=== PATIENT | male | born 1945 | race Caucasian/White ===

== ENCOUNTER 2020-08-31 11:20 | Inpatient (IN) ==
[2020-08-31] MEDS ORDERED: FAMOTIDINE 20MG IV PUSH 20 MG/5 ML SYR IV STA (12:17)
[2020-08-31] MEDS ORDERED: PANTOprazole 80 MG in DEXTROSE 5% 100 ML IV ONE (12:17)
--- NOTE | 2020-08-31 12:23 | Emergency Department Note ---
Impression & Plan Upper gastrointestinal hemorrhage, Anemia, Heme positive stool, Black stool, Acute hyponatremia ED Provider Note NAME: SONIA EDDY AGE: 75 SEX: M : 1945 ARRIVES VIA: Walk-In INFORMANT: [Patient] ED PROVIDER(S): [Christopher Perez MD] CHIEF COMPLAINT: Rectal bleeding HISTORY OF PRESENT ILLNESS: The patient is a 75-year-old male who presents to the ER with potential rectal bleeding. The patient states that last weekend, about 5 to 6 days ago, he had some fever and some chills. He was sweating. Patient states that he was placed on antibiotics for his right foot. He did see a school psychologist yesterday, the antibiotics were stopped--infection was not a concern. Patient states that yesterday is when the dark stool started. He had some loose black stool that he thought may have been from the antibiotics. This morning, he had formed stool that was black and he felt a little bit lightheaded. He was somewhat weak. He does not really have any abdominal pain. There has been no nausea or vomiting. Patient denies any previous history of GI bleeding. He is on aspirin daily as a preventative measure. The patient is not on Coumadin or any new oral anticoagulants. No history of gastric ulcer. REVIEW OF SYSTEMS: See HPI for pertinent positives and negatives. A total of ten systems were reviewed and were otherwise negative. PMHx/PSHx: See Below SOCIAL HISTORY: See Below. PHYSICAL EXAM: GENERAL: Patient is in no acute distress. HEENT: No acute trauma, normocephalic atraumatic, mucous membranes moist, no nasal congestion, no scleral icterus. NECK: No stridor, no adenopathy, no meningismus, trachea is midline. LUNGS: Clear to auscultation bilaterally, no wheeze, no rhonchi, breath sounds equal. HEART: Without murmurs gallops or rubs, regular rate and rhythm. ABDOMEN: Soft, nontender, bowel sounds positive, no hernias, no peritonitis. EXTREMITIES: No cyanosis or edema, full range of motion of all the joints without pain or difficulty, no signs for acute trauma. NEUROLOGIC: Oriented x 3, no acute motor or sensory deficits, no focal weakness. SKIN: No rash, no jaundice, no diaphoresis. Rectal: Black stool, heme positive. DIFFERENTIAL DIAGNOSIS: Diverticulosis, AVM, coagulopathy, colitis, inflammatory bowel disease, malignancy, Amber-Ayers tear, esophagitis, peptic ulcer disease, variceal bleed, gastritis, epistaxis, fissure, hemorrhoids, as well as other pathologies. EMERGENCY DEPARTMENT COURSE/PROCEDURES: ECG: Indication was GI bleed. The ECG shows a normal sinus rhythm with a rate of 62. There is no ST elevation, no PVCs. The QTc is 422. Continuous Cardiac Monitoring: An order was placed for continuous cardiac monitoring. The monitor shows a rate of 65 with normal sinus rhythm. MEDICAL DECISION MAKING: There is no leukocytosis. The patient is mildly anemic with a hemoglobin of 13.9. There is a normal platelet count. No coagulopathy. Sodium was somewhat low at 129, no kidney failure. No concerning liver enzyme elevation. No evidence for pancreatitis. ECG shows a normal sinus rhythm, no acute ischemia. Cardiac enzyme testing x1 is not consistent with acute cardiac injury. On exam, the patient's stool was black in color and heme positive. Patient likely has an upper GI bleed. He was given IV Protonix and then placed on a Protonix drip. He was given IV saline and IV Pepcid. The patient is not in need of an emergent blood transfusion. He does need hospitalization and further work-up. He may require an endoscopy. The patient was told the results of his testing. He is currently resting comfortably. I did speak with case management, the on-call hospitalist was consulted. Past Med/Surg History Medical History Neuropathy Family History Other Family history non-contributory Social History Smoking Status: Never smoker Preferred Language: Albanian Feels Safe at Home: Yes Allergies Allergies Allergy/AdvReac Type Severity Reaction Status Date / Time amoxicillin [From Augmentin] AdvReac Nausea Unverified 08/31/20 14:21 clavulanic acid AdvReac Nausea Unverified 08/31/20 14:21 [From Augmentin] Home Meds Home Medications Medication Instructions Recorded Confirmed alendronate 70 mg PO WK 08/31/20 08/31/20 allopurinol 300 mg PO DAILY 08/31/20 08/31/20 alprazolam 0.5 mg PO BID PRN 08/31/20 08/31/20 aspirin 81 mg PO DAILY 08/31/20 08/31/20 atorvastatin 10 mg PO DAILY 08/31/20 08/31/20 bisoprolol fumarate 10 mg PO DAILY 08/31/20 08/31/20 cholecalciferol (vitamin D3) 25 mcg PO DAILY 08/31/20 08/31/20 fish,bora,flax oils-om3,6,9no1 1 cap PO DAILY 08/31/20 08/31/20 [[place] 3-6-9] lisinopril 40 mg PO DAILY 08/31/20 08/31/20 sulfamethoxazole-trimethoprim 1 tab PO UD 08/31/20 08/31/20 [Bactrim DS] Results & Data (ED) Vital Signs Vital Signs - 24 hr 08/31/20 11:36 08/31/20 12:37 08/31/20 12:58 Temperature 36.7 C Temperature Source Oral Pulse Rate 70 63 64 Pulse Rate from SpO2 Sensor 64 62 Respiratory Rate 20 22 23 Blood Pressure 139/90 126/78 Blood Pressure Mean 106 94 Pulse Oximetry 98 96 96 Oxygen Delivery Method Room Air Sepsis Recent Fever Within 48 Hours No Sepsis New/Unexplained Change in Mental Status N/A Sepsis Action Taken by Nursing No Action Required 08/31/20 13:00 08/31/20 13:30 08/31/20 14:00 Temperature Temperature Source Pulse Rate 63 67 63 Pulse Rate from SpO2 Sensor 63 68 64 Respiratory Rate 21 20 20 Blood Pressure 142/86 H 158/84 H 143/85 H Blood Pressure Mean 98 118 96 Pulse Oximetry 97 97 95 Oxygen Delivery Method Room Air Room Air Sepsis Recent Fever Within 48 Hours Sepsis New/Unexplained Change in Mental Status Sepsis Action Taken by Nursing 08/31/20 14:30 08/31/20 14:31 Temperature Temperature Source Pulse Rate 64 66 Pulse Rate from SpO2 Sensor 64 66 Respiratory Rate 23 21 Blood Pressure 139/84 Blood Pressure Mean 97 Pulse Oximetry 96 96 Oxygen Delivery Method Room Air Sepsis Recent Fever Within 48 Hours Sepsis New/Unexplained Change in Mental Status Sepsis Action Taken by Alf Medications Current Medication List: was personally reviewed by me Laboratory Data Attestation: I reviewed the patient's lab results. Result diagrams: 08/31/20 12:30 08/31/20 12:30 Lab Results 08/31/20 08/31/20 08/31/20 Range/Units 12:30 12:30 12:30 WBC 6.77 (4.8-10.8) K/uL RBC 4.13 L (4.7-6.1) M/uL Hgb 13.9 L (14.0-18.0) g/dL Hct 40.2 L (42-52) % MCV 97.3 (80-100) fL MCH 33.7 (25-34) pg MCHC 34.6 (32-36) g/dL RDW Std Deviation 45.5 (36.4-46.3) fL RDW Coeff of Francisco Javier 12.6 (11.5-14.5) % Plt Count 155 (130-400) K/uL MPV 9.8 (7.4-10.4) fL Immature Gran % (Auto) 0.6 % Neut % (Auto) 68.5 % Lymph % (Auto) 13.3 % Hughes % (Auto) 16.2 % Eos % (Auto) 1.3 % Baso % (Auto) 0.1 % Neut # (Auto) 4.63 (1.4-6.5) K/uL Lymph # (Auto) 0.90 L (1.2-3.4) K/uL Hughes # (Auto) 1.10 H (0.11-0.59) K/uL Eos # (Auto) 0.09 (0-0.5) K/uL Baso # (Auto) 0.01 (0-0.2) K/uL Immature Gran # (Auto) 0.04 H (0.00-0.02) K/uL PT 11.0 (9.0-12.0) Seconds INR 1.0 (0.9-1.1) APTT 23.1 (21.0-31.0) Seconds PTT Ratio 0.8 Sodium (136-145) mmol/L Potassium (3.5-5.1) mmol/L Chloride (98-107) mmol/L Carbon Dioxide (21-32) mmol/L Anion Gap (3-11) BUN (7-18) mg/dl Creatinine (0.6-1.4) mg/dl Est Cr Clr Drug Dosing ml/min Est GFR ( Amer) Est GFR (Non-Af Amer) BUN/Creatinine Ratio (-20) Glucose (70-99) mg/dl Osmolality (280-300) mOsm/kg Calcium (8.5-10.1) mg/dl Magnesium (1.8-2.4) mg/dl Total Bilirubin (0.2-1) mg/dl AST (15-37) U/L ALT (12-78) U/L Alkaline Phosphatase (45-117) U/L Troponin I (0-0.045) ng/ml Total Protein (6.4-8.2) gm/dl Albumin (3.4-5.0) gm/dl Globulin (2.5-4.0) gm/dl Albumin/Globulin Ratio (0.9-2) Lipase (73-393) U/L Specimen Hemolysis Blood Type O Positive Antibody Screen NEGATIVE 08/31/20 08/31/20 Range/Units 12:30 12:36 WBC (4.8-10.8) K/uL RBC (4.7-6.1) M/uL Hgb (14.0-18.0) g/dL Hct (42-52) % MCV (80-100) fL MCH (25-34) pg MCHC (32-36) g/dL RDW Std Deviation (36.4-46.3) fL RDW Coeff of Francisco Javier (11.5-14.5) % Plt Count (130-400) K/uL MPV (7.4-10.4) fL Immature Gran % (Auto) % Neut % (Auto) % Lymph % (Auto) % Hughes % (Auto) % Eos % (Auto) % Baso % (Auto) % Neut # (Auto) (1.4-6.5) K/uL Lymph # (Auto) (1.2-3.4) K/uL Hughes # (Auto) (0.11-0.59) K/uL Eos # (Auto) (0-0.5) K/uL Baso # (Auto) (0-0.2) K/uL Immature Gran # (Auto) (0.00-0.02) K/uL PT (9.0-12.0) Seconds INR (0.9-1.1) APTT (21.0-31.0) Seconds PTT Ratio Sodium 129 L (136-145) mmol/L Potassium 3.8 (3.5-5.1) mmol/L Chloride 96 L (98-107) mmol/L Carbon Dioxide 26 (21-32) mmol/L Anion Gap 7.0 (3-11) BUN 15 (7-18) mg/dl Creatinine 1.12 (0.6-1.4) mg/dl Est Cr Clr Drug Dosing 57.9 ml/min Est GFR ( Amer) 73.6 Est GFR (Non-Af Amer) 63.5 BUN/Creatinine Ratio 13.7 (10-20) Glucose 104 H (70-99) mg/dl Osmolality 273 L (280-300) mOsm/kg Calcium 9.2 (8.5-10.1) mg/dl Magnesium 2.2 (1.8-2.4) mg/dl Total Bilirubin 0.7 (0.2-1) mg/dl AST 36 (15-37) U/L ALT 30 (12-78) U/L Alkaline Phosphatase 65 (45-117) U/L Troponin I < 0.015 (0-0.045) ng/ml Total Protein 7.6 (6.4-8.2) gm/dl Albumin 3.2 L (3.4-5.0) gm/dl Globulin 4.4 H (2.5-4.0) gm/dl Albumin/Globulin Ratio 0.7 L (0.9-2) Lipase 139 (73-393) U/L Specimen Hemolysis Blood Type Antibody Screen Administered Medications Pantoprazole Sodium 40 mg/ (Dextrose) 100 mls @ 20 mls/hr IV Q5H BRYANT Stop: 08/31/20 17:29 Last Admin: 08/31/20 13:10 Dose: 8 mg/hr, 20 mls/hr Documented by: [id number] Discontinued Medications Sodium Chloride (Nss 1000ml) 1,000 mls @ 999 mls/hr IV .Q1H1M BRYANT Stop: 08/31/20 13:30 Last Infusion: 08/31/20 13:54 Dose: 0 mls/hr Documented by: [id number] Admin: 08/31/20 12:54 Dose: 999 mls/hr Documented by: [id number] Pantoprazole Sodium 80 mg/ (Dextrose) 100 mls @ 400 mls/hr IV NOW ONE Stop: 08/31/20 12:31 Last Infusion: 08/31/20 13:10 Dose: 0 mls/hr Documented by: [id number] Admin: 08/31/20 12:54 Dose: 400 mls/hr Documented by: [id number] Famotidine (Pepcid 20mg Iv Push) 20 mg in 5 mls @ 2.5 mls/min IV NOW STA Stop: 08/31/20 12:18 Last Admin: 08/31/20 12:54 Dose: 2.5 mls/min Documented by: [id number] Blood Pressure Blood Pressure Findings: Elevated blood pressure Blood Pressure Disposition: further management by hospitalist Discharge Plan Visit Data Chief Complaint: Rectal Bleed Stated Complaint: BLACK STOOL, LIGHTHEADED ED Provider: Christopher Perez Discharge Problem: Upper gastrointestinal hemorrhage, Anemia, Heme positive stool, Black stool, Acute hyponatremia Patient Disposition: Admitted As Inpatient Condition: Good Forms Stand Alone Forms: My [facility] [employer] Prescriptions Prescriptions: No Action atorvastatin 10 mg tablet 10 mg PO DAILY RF: 0 alendronate 70 mg tablet 70 mg PO WK RF: 0 sulfamethoxazole-trimethoprim [Bactrim DS] 800-160 mg tablet 1 tab PO UD RF: 0 bisoprolol fumarate 10 mg tablet 10 mg PO DAILY RF: 0 allopurinol 300 mg tablet 300 mg PO DAILY RF: 0 lisinopril 40 mg tablet 40 mg PO DAILY RF: 0 alprazolam 0.5 mg tablet 0.5 mg PO BID PRN (Reason: Anxiety) RF: 0 aspirin 81 mg Tablet 81 mg PO DAILY RF: 0 cholecalciferol (vitamin D3) 25 mcg (1,000 unit) Capsule 25 mcg PO DAILY RF: 0 [place] 3-6-9 1,200 mg Capsule 1 cap PO DAILY RF: 0 Referrals Referrals: Louie Bhatt DO [Primary Care Provider] - Discharge Problem: Anemia Qualifiers: Anemia type: unspecified type Qualified Code(s): D64.9 - Anemia, unspecified
[2020-08-31] MEDS ORDERED: PANTOprazole 40 MG in DEXTROSE 5% 100 ML IV SCH (12:30)
[2020-08-31] MEDS ORDERED: SODIUM CHLORIDE 0.9% 1000ML 1,000 ML IV SCH ×2 (12:30→19:15)
[2020-08-31 12:47] LABS: Basophils # (auto) 0.01 K/uL (0-0.2); Basophils % (auto) 0.1 %; Eosinophils # (auto) 0.09 K/uL (0-0.5); Eosinophils % (auto) 1.3 %; Hematocrit (blood only) 40.2 % (42-52); Hemoglobin 13.9 g/dL (14.0-18.0); Immature Granulocytes # (auto) 0.04 K/uL (0.00-0.02); Immature Granulocytes % (auto) 0.6 %; Lymphocytes % (auto) 13.3 %; Mean Corpuscular Hemoglobin 33.7 pg (25-34); Mean Corpuscular Hgb Conc 34.6 g/dL (32-36); Mean Corpuscular Volume 97.3 fL (80-100); Mean Platelet Volume 9.8 fL (7.4-10.4); Monocytes % (auto) 16.2 %; Neutrophils # (auto) 4.63 K/uL (1.4-6.5); Neutrophils % (auto) 68.5 %; Platelet Count 155 K/uL (130-400); RDW Coefficient of Variation 12.6 % (11.5-14.5); RDW Standard Deviation 45.5 fL (36.4-46.3); Red Blood Count 4.13 M/uL (4.7-6.1); White Blood Count 6.77 K/uL (4.8-10.8)
[2020-08-31 13:08] LABS: Partial Thromboplastin Ratio 0.8; Partial Thromboplastin Time 23.1 Seconds (21.0-31.0)
[2020-08-31 13:44] LABS: Alanine Aminotransferase 30 U/L (12-78); Albumin Level 3.2 gm/dl (3.4-5.0); Aspartate Aminotransferase 36 U/L (15-37); BUN Creatinine Ratio 13.7 (10-20); Blood Urea Nitrogen 15 mg/dl (7-18); Calcium 9.2 mg/dl (8.5-10.1); Carbon Dioxide 26 mmol/L (21-32); Chloride 96 mmol/L (98-107); Creatinine Clr Calc Pharmacy 57.9 ml/min; Est GFR (African American) 73.6; Est GFR (Non-African American) 63.5; Glucose 104 mg/dl (70-99); Lipase 139 U/L (73-393); Magnesium 2.2 mg/dl (1.8-2.4); Potassium 3.8 mmol/L (3.5-5.1); Sodium 129 mmol/L (136-145)
[2020-08-31 13:50] LABS: Albumin Globulin Ratio 0.7 (0.9-2); Alkaline Phosphatase 65 U/L (45-117); Bilirubin,Total 0.7 mg/dl (0.2-1); Globulin 4.4 gm/dl (2.5-4.0); Total Protein 7.6 gm/dl (6.4-8.2); Troponin I < 0.015 ng/ml (0-0.045)
--- NOTE | 2020-08-31 14:30 | History & Physical Report ---
Date of Service August 31, 2020 Assessment & Plan (1) Melena: This is a 35-year-old male with PMH of hypertension, peripheral neuropathy dyslipidemia, anxiety, alcohol use disorder and other medical problems as a below who presents with 2 episodes of melena. -Two episodes of melena in the past 2 days with associated lightheadedness and weakness, heme positive rectal exam in setting of significant daily alcohol use, NSAIDs -DDx PUD versus gastritis. No history of GI bleeds -Hemoglobin stable at 13.9 (baseline hemoglobin ~15). Repeat H&H at 1800 -Creatinine at baseline at 1.12, BUN 15 -Discussed case with GI. Clears for now, continue PPI bolus and drip, n.p.o. at midnight for planned EGD tomorrow (2) Hyponatremia: Sodium of 129 (baseline Na ~132). In setting of chronic alcohol use, dehydration -Continue gentle fluid resuscitation. Hypotonic hyponatremia with serum osm of 273- awaiting urine Osm and urine Na (3) Alcohol use disorder: Endorses drinking 6 beers daily. Denies issues with withdrawal in the past. At risk protocol with IV Ativan, receiving banana bag. Consider addition of gabapentin if needed (4) Hypertension: Continue lisinopril, bisoprolol (5) Dyslipidemia: Continue statin (6) Anxiety: Continue alprazolam as needed DVT Ppx: SCDs Code status: FULL PCP: Miller Dispo: Admitted to [facility]. Plan to return home once medically stable. Patient seen in collaboration with Dr. Solorio. Please see addendum. History of Present Illness Chief Complaint: Melena Primary Care Provider: Louie Bhatt, This is a 35-year-old male with PMH of hypertension, peripheral neuropathy dyslipidemia, anxiety, alcohol use disorder and other medical problems as a below who presents with 2 episodes of melena. Patient was recently placed on Bactrim for suspected foot infection by director of convention services but it was discontinued yesterday when he was evaluated in the office. Had one episode of black, liquid sticky stool yesterday but attributed that to antibiotic. Had another episode this morning with associated lightheadedness and weakness that was more concerning to him and decided to come to ED for further evaluation. Denies any nausea, vomiting or abdominal pain. Did take 4 Motrin x 2 days for suspected fever in setting of suspected foot infection earlier this week. Also endorses drinking 6 beers every night. Denies any history of GI bleeds or smoking. Takes baby aspirin because he was placed on it by former PCP. History of colonoscopy in 2018 with presence of diverticulosis but denies any history of EGD. Denies any fever, chills, lightheadedness, visual changes, chest pain, palpitation, shortness of breath, dysuria or constipation. Allergies Allergy/AdvReac Type Severity Reaction Status Date / Time amoxicillin [From Augmentin] AdvReac Nausea Unverified 08/31/20 14:21 clavulanic acid AdvReac Nausea Unverified 08/31/20 14:21 [From Augmentin] Home Medications Home Medications Medication Instructions Recorded Confirmed Type alendronate 70 mg PO WK 08/31/20 08/31/20 History allopurinol 300 mg PO DAILY 08/31/20 08/31/20 History alprazolam 0.5 mg PO BID PRN 08/31/20 08/31/20 History aspirin 81 mg PO DAILY 08/31/20 08/31/20 History atorvastatin 10 mg PO DAILY 08/31/20 08/31/20 History bisoprolol fumarate 10 mg PO DAILY 08/31/20 08/31/20 History cholecalciferol (vitamin D3) 25 mcg PO DAILY 08/31/20 08/31/20 History fish,bora,flax oils-om3,6,9no1 1 cap PO DAILY 08/31/20 08/31/20 History [[place] 3-6-9] lisinopril 40 mg PO DAILY 08/31/20 08/31/20 History sulfamethoxazole-trimethoprim 1 tab PO UD 08/31/20 08/31/20 History [Bactrim DS] Past Med/Surg History Medical History Alcohol use disorder Anxiety Dyslipidemia Hypertension Peripheral neuropathy Surgical History History of tonsillectomy S/P rotator cuff repair Family History Other Alzheimer disease Family history non-contributory Social History (Updated 08/31/20 @ 16:00 by Lisa Mcrae PA-C) Smoking Status: Never smoker Hx Alcohol Use: Yes Alcohol type: beer Alcohol Intake Frequency: 4 or More x per/Week Alcohol Intake Frequency Comment: 6-7 beers every night Hx Substance Use: No Preferred Language: Turkmen Communication Ability: Effective Refurbish Technician Required: No Beliefs That Will Affect Care: None Current Living Situation: Spouse Feels Safe at Home: Yes Assistive Devices: Cane and Hearing Aid - Bilateral Review of Systems Review of Systems: At least ten systems reviewed and negative except as noted in the HPI. Physical Exam Physical Exam: General Appearance: WD/WN, vitals as above, NAD, sitting up in bed, pleasant, conversing easily Head: normocephalic, atraumatic Eyes: normal inspection, PERRL, conjunctivae normal, anicteric sclerae ENT: external ear and nose normal, oropharynx normal Neck: normal visual inspection, trachea midline, no thyromegaly Respiratory: normal respiratory effort, lungs clear to auscultation, no wheeze, rales, rhonchi. No accessory muscle use Cardiovascular: regular rate, rhythm, no murmur, normal peripheral pulses, no BLE edema. Vessels: no JVD Chest: normal inspection of chest Abdomen/GI: normal bowel sounds, soft, nontender, no hepatosplenomegaly Extremities/Musculoskeletal: no cyanosis or clubbing, extremities motor strength 5/5 Neurologic: PERRL, EOMI, accommodation nl, no face palsy, no dysarthria, CN's II-XI intact bilaterally and moves all extremities Psychiatric: A+Ox3, euthymic affect Skin: no rashes, normal color, warm/dry Results & Data Results & Data ([facility]) Vital Signs (Past 12 Hours) Vital Signs Temp Pulse Resp BP Pulse Ox 08/31/20 14:00 63 20 143/85 H 95 08/31/20 13:30 67 20 158/84 H 97 08/31/20 13:00 63 21 142/86 H 97 08/31/20 12:58 64 23 96 08/31/20 12:37 63 22 126/78 96 08/31/20 11:36 36.7 C 70 20 139/90 98 Laboratory Results Short CBC 08/31/20 Range/Units 12:30 WBC 6.77 (4.8-10.8) K/uL Hgb 13.9 L (14.0-18.0) g/dL Hct 40.2 L (42-52) % Plt Count 155 (130-400) K/uL BMP 08/31/20 12:30 Sodium 129 L Potassium 3.8 Chloride 96 L Carbon Dioxide 26 BUN 15 Creatinine 1.12 Glucose 104 H Calcium 9.2 Cardiac Enzymes 08/31/20 Range/Units 12:30 Troponin I < 0.015 (0-0.045) ng/ml Liver Function 08/31/20 Range/Units 12:30 Total Bilirubin 0.7 (0.2-1) mg/dl AST 36 (15-37) U/L ALT 30 (12-78) U/L Alkaline Phosphatase 65 (45-117) U/L Albumin 3.2 L (3.4-5.0) gm/dl Supervising Physician Co-Signing Physician Notes Attending addendum The patient was seen and examined in medical telemetry unit He has been complaining of black stool for the last 1 day with history of use of ibuprofen for 2 days prior to this event Has been complaining of dizziness with ambulation Denies any abdominal pain, nausea and or vomiting On examination Anxious otherwise hemodynamically stable Chest-clear to auscultate bilaterally Heart-S1-S2, regular Abdomen-benign, bowel sounds present Extremities-negative for any edema Admission labs and imaging studies reviewed Has melena secondary to gastritis/PUD with bleeding likely secondary to use of NSAID use and complicated by use of alcohol GI consulted for possible EGD tomorrow Reviewed and agree with assessment and plan as outlined above by CASSIDY Harris Dr
--- NOTE | 2020-08-31 15:51 | Gastrointestinal Consultation ---
Date of Consultation August 31, 2020 Assessment & Plan (1) Melena: Pt is a 75 y/o male who presented melena x 2 days in setting of heavy ETOH and NSAIDs uses. + baby ASA but no anticoags. INR. - OK for CL diet today - PPI bolus and gtt - NPO after midnight for EGD eval tomorrow 09/01 to r/o PUD, gastritis - Monitor blood ct and transfuse prn - ETOH withdrawal protocol in place Supervising Physician Co-Signing Physician Notes I performed a history and physical examination of the patient today, including specifically on physical exam - soft abdomen. I have discussed the patient's management with the advanced practitioner. Please refer to the nurse practitioner's note for the documented findings and plan of care. EGD tomorrow. History of Present Illness Reason for Consultation: Melena Requesting Physician: Lisa Mcrae PA-C Attending Physician: Dr. Ollie Burgess History of Present Illness Pt is a 75 y/o male w PMHx of HTN, neuropathy who presented to ED w c/o black liquid stools x 2 days. He was given Bactrim for suspected foot infection but this was DC'd by his research animal attendant recently. He started to notice black liquid sticky stools on Friday but denies associated abd pain, n/v, fever, chills. Today felt lightheaded and loss balance thus decided to come to ED. He does take Motrin for pain and also admits to drink about beers daily. Denies hx of PUD, nor hx of EGD eval in the past. Colonoscopy in 2018 showed diverticulosis on sigmoid colon and adenomatous polyp, f/u recommended in 3 yrs. He isn't on anticoagulants but takes baby ASA. INR 1.0. H/H 06/08/, BUN/Cr 15 /1.1. LFTs, lipase normal. Allergies Allergy/AdvReac Type Severity Reaction Status Date / Time amoxicillin [From Augmentin] AdvReac Nausea Unverified 08/31/20 14:21 clavulanic acid AdvReac Nausea Unverified 08/31/20 14:21 [From Augmentin] Home Medications Home Medications Medication Instructions Recorded Confirmed Type alendronate 70 mg PO WK 08/31/20 08/31/20 History allopurinol 300 mg PO DAILY 08/31/20 08/31/20 History alprazolam 0.5 mg PO BID PRN 08/31/20 08/31/20 History aspirin 81 mg PO DAILY 08/31/20 08/31/20 History atorvastatin 10 mg PO DAILY 08/31/20 08/31/20 History bisoprolol fumarate 10 mg PO DAILY 08/31/20 08/31/20 History cholecalciferol (vitamin D3) 25 mcg PO DAILY 08/31/20 08/31/20 History fish,bora,flax oils-om3,6,9no1 1 cap PO DAILY 08/31/20 08/31/20 History [[place] 3-6-9] lisinopril 40 mg PO DAILY 08/31/20 08/31/20 History sulfamethoxazole-trimethoprim 1 tab PO UD 08/31/20 08/31/20 History [Bactrim DS] Patient History Medical History Alcohol use disorder Anxiety Dyslipidemia Hypertension Peripheral neuropathy Surgical History History of tonsillectomy S/P rotator cuff repair Family History Other Alzheimer disease Family history non-contributory Social History (Updated 08/31/20 @ 16:00 by Lisa Mcrae PA-C) Smoking Status: Never smoker Hx Alcohol Use: Yes Alcohol type: beer Alcohol Intake Frequency: 4 or More x per/Week Alcohol Intake Frequency Comment: 6-7 beers every night Hx Substance Use: No Preferred Language: Macedonian Communication Ability: Effective Program Clinician Required: No Beliefs That Will Affect Care: None Current Living Situation: Spouse Feels Safe at Home: Yes Assistive Devices: Cane and Hearing Aid - Bilateral Review of Systems Review of Systems: All systems reviewed & are unremarkable except as noted in HPI & below Physical Exam Constitutional: WD/WN, vitals as above well groomed, cooperative and comfortable Eyes: PERRL, conjunctivae normal, anicteric sclerae ENMT: external ear and nose normal, oropharynx normal Respiratory: normal respiratory effort, lungs clear to auscultation Cardiovascular: RRR, no murmur, no edema Gastrointestinal (Abdomen): normal bowel sounds, soft, nontender, no hepatosplenomegaly Skin: no rashes, warm and dry no jaundice Psychiatric: A+Ox3, euthymic affect Lymphatic: no lymphedema Results & Data ([facility]) Vital Signs (Past 12 Hours) Vital Signs Temp Pulse Resp BP Pulse Ox 08/31/20 14:31 66 21 139/84 96 08/31/20 14:30 64 23 96 08/31/20 14:00 63 20 143/85 H 95 08/31/20 13:30 67 20 158/84 H 97 08/31/20 13:00 63 21 142/86 H 97 08/31/20 12:58 64 23 96 08/31/20 12:37 63 22 126/78 96 08/31/20 11:36 36.7 C 70 20 139/90 98
[2020-08-31] MEDS ORDERED: LORazepam 1 MG/2 ML VIAL IV PRN (16:50)
[2020-08-31] MEDS ORDERED: ACETAMINOPHEN 325 MG TAB PO PRN (16:50)
[2020-08-31] MEDS ORDERED: ONDANSETRON INJ 2 MG/ML 2 ML VIAL IV PRN (16:50)
[2020-08-31] MEDS ORDERED: MULTI-VITAMIN INFUSION 10 ML, THIAMINE HCL 100 MG, FOLIC ACID 1 MG in SODIUM CHLORIDE 0... IV ONE (17:15)
--- NOTE | 2020-08-31 17:59 | Electrocardiogram Report ---
Test Reason : Blood Pressure : / mmHG Vent. Rate : 062 BPM Atrial Rate : 062 BPM P-R Int : 192 ms QRS Dur : 090 ms QT Int : 416 ms P-R-T Axes : 036 012 033 degrees QTc Int : 422 ms Poor data quality, interpretation may be adversely affected Normal sinus rhythm Normal ECG No previous ECGs available Confirmed by Gulshan Diaz ([id number]) on 08/31/2020 5:58:57 PM Referred By: REFERRED SELF Confirmed By:Cruz Diaz
[2020-08-31 18:06] LABS: Hematocrit (blood only) 40.3 % (42-52); Hemoglobin 13.7 g/dL (14.0-18.0)
[2020-09-01] MEDS: ALPRAZolam 0.5 MG TABLET PO PRN (02:08)
[2020-09-01 06:50] LABS: Basophils # (auto) 0.02 K/uL (0-0.2); Basophils % (auto) 0.4 %; Eosinophils # (auto) 0.14 K/uL (0-0.5); Eosinophils % (auto) 2.5 %; Hematocrit (blood only) 34.8 % (42-52); Hemoglobin 11.5 g/dL (14.0-18.0); Immature Granulocytes # (auto) 0.05 K/uL (0.00-0.02); Immature Granulocytes % (auto) 0.9 %; Lymphocytes # (auto) 1.58 K/uL (1.2-3.4); Lymphocytes % (auto) 28.2 %; Mean Corpuscular Volume 99.7 fL (80-100); Mean Platelet Volume 9.9 fL (7.4-10.4); Monocytes % (auto) 14.3 %; Neutrophils # (auto) 3.01 K/uL (1.4-6.5); Neutrophils % (auto) 53.7 %; Platelet Count 160 K/uL (130-400); RDW Coefficient of Variation 12.7 % (11.5-14.5); Red Blood Count 3.49 M/uL (4.7-6.1)
[2020-09-01 07:28] LABS: BUN Creatinine Ratio 11.9 (10-20); Calcium 7.8 mg/dl (8.5-10.1); Creatinine Clr Calc Pharmacy 83.2 ml/min; Est GFR (African American) 101.6; Est GFR (Non-African American) 87.7
--- NOTE | 2020-09-01 09:02 | Gastroenterology Progress Note ---
Date of Service September 01, 2020 Assessment & Plan (1) Melena: Pt is a 75 y/o male who presented melena x 2 days in setting of heavy ETOH and NSAIDs uses. + baby ASA but no anticoags. INR normal - PPI gtt - Keep NPO for EGD eval today to r/o PUD, gastritis - Monitor blood ct and transfuse prn - ETOH withdrawal protocol in place Admission and Anticipated Discharge Date Admission Date: August 31, 2020 Supervising Physician Co-Signing Physician Notes I performed a history and physical examination of the patient today, including specifically on physical exam - soft abdomen. I have discussed the patient's management with the advanced practitioner. Please refer to the nurse practitioner's note for the documented findings and plan of care. EGD today. Subjective Pt reports BM this AM still black, soft. Denies CP, SOB, abd pain, n/v. Review of Systems Review of Systems: All systems reviewed & are unremarkable except as noted in HPI & below Physical Exam Constitutional: WD/WN, vitals as above well groomed, cooperative and comfortable Eyes: PERRL, conjunctivae normal, anicteric sclerae ENMT: external ear and nose normal, oropharynx normal Respiratory: normal respiratory effort, lungs clear to auscultation Cardiovascular: RRR, no murmur, no edema Gastrointestinal (Abdomen): normal bowel sounds, soft, nontender, no hepatosplenomegaly Skin: no rashes, warm and dry no jaundice Psychiatric: A+Ox3, euthymic affect Lymphatic: no lymphedema Results & Data ([facility]) Vital Signs (Past 12 Hours) Vital Signs Temp Pulse Pulse Resp BP Pulse Ox 09/01/20 07:21 36.9 C 60 19 155/86 H 95 09/01/20 04:18 36.4 C L 70 18 127/64 99 09/01/20 00:08 36.5 C 64 18 128/71 95 08/31/20 23:20 63 08/31/20 22:11 71
[2020-09-01] MEDS: lisinopriL 40 MG TAB PO SCH (09:20)
[2020-09-01] MEDS: CHOLECALCIFEROL 1,000 UNITS 25 MCG TAB PO SCH (09:20)
[2020-09-01] MEDS: OMEGA-3 (PURIFIED FISH OIL) 1 GM CAP PO SCH (09:20)
[2020-09-01] MEDS: ATORVASTATIN 10 MG TAB PO SCH (09:20)
[2020-09-01] MEDS: BISOPROLOL FUMARATE 5 MG TAB PO SCH (09:20)
[2020-09-01] MEDS: allopurinoL 300 MG TAB PO SCH (09:20)
--- NOTE | 2020-09-01 10:22 | Anesthesiology Consultation ---
Date of Service September 01, 2020 Assessment & Plan (1) Encounter for pre-operative examination: Chart Review Chart Review: Acceptable Risk for Surgery and Patient NOT seen in Pre Admission Testing Consults Requested none Additional Notes Rapid COVID negative History Surgery Operation Date: 09/01/20 16:30 Proposed Procedures p Esophagogastroduodenoscopy Dr Burgess - Ollie Burgess MD Height/Weight Height: 5 ft 10 in Weight: 85.6 kg Allergies Allergy/AdvReac Type Severity Reaction Status Date / Time amoxicillin [From Augmentin] AdvReac Nausea Unverified 08/31/20 14:21 clavulanic acid AdvReac Nausea Unverified 08/31/20 14:21 [From Augmentin] Medications Home Medications Medication Instructions Recorded Confirmed Last Taken alendronate 70 mg PO WK 08/31/20 08/31/20 Unknown allopurinol 300 mg PO DAILY 08/31/20 08/31/20 08/31/20 alprazolam 0.5 mg PO BID PRN 08/31/20 08/31/20 Unknown aspirin 81 mg PO DAILY 08/31/20 08/31/20 Unknown atorvastatin 10 mg PO DAILY 08/31/20 08/31/20 08/31/20 bisoprolol fumarate 10 mg PO DAILY 08/31/20 08/31/20 08/31/20 cholecalciferol (vitamin D3) 25 mcg PO DAILY 08/31/20 08/31/20 Unknown fish,bora,flax oils-om3,6,9no1 1 cap PO DAILY 08/31/20 08/31/20 Unknown [[place] 3-6-9] lisinopril 40 mg PO DAILY 08/31/20 08/31/20 08/31/20 sulfamethoxazole-trimethoprim 1 tab PO UD 08/31/20 08/31/20 Unknown [Bactrim DS] Active Medications Generic Name Dose Route Start Last Admin Trade Name Freq PRN Reason Stop Dose Admin Allopurinol 300 mg 09/01/20 09:00 09/01/20 09:20 Allopurinol 300 Mg Tab PO 10/01/20 08:59 Not Given DAILY BRYANT Alprazolam 0.5 mg 08/31/20 16:50 09/01/20 02:08 Alprazolam 0.5 Mg Tablet PO 09/30/20 16:49 0.5 mg BID PRN Administration Anxiety Atorvastatin Calcium 10 mg 09/01/20 09:00 09/01/20 09:20 Atorvastatin 10 Mg Tab PO 10/01/20 08:59 Not Given DAILY BRYANT Bisoprolol Fumarate 10 mg 09/01/20 09:00 09/01/20 09:20 Bisoprolol Fumarate 5 Mg Tab PO 10/01/20 08:59 Not Given DAILY BRYANT Fish Oil 1 gm 09/01/20 09:00 09/01/20 09:20 [place]-3 (Purified Fish Oil) 1 Gm Cap PO 10/01/20 08:59 Not Given DAILY BRYANT Lisinopril 40 mg 09/01/20 09:00 09/01/20 09:20 Lisinopril 40 Mg Tab PO 10/01/20 08:59 Not Given DAILY BRYANT Vitamin D 1,000 units 09/01/20 09:00 09/01/20 09:20 Cholecalciferol 1,000 Units 25 Mcg Tab PO 10/01/20 08:59 Not Given DAILY BRYANT Past Medical History Medical History Alcohol use disorder Anxiety Dyslipidemia Hypertension Peripheral neuropathy Past Family History Family History Other Alzheimer disease Family history non-contributory Past Surgical History Surgical History History of tonsillectomy S/P rotator cuff repair Social History Smoking Status: Never smoker Hx Alcohol Use: Yes Alcohol type: beer alcohol intake frequency: 3 or more drinks per day Hx Substance Use: No Physical Exam Vital Signs Last Vital Signs Temp 36.9 C 09/01/20 07:21 Pulse 60 09/01/20 07:21 Resp 19 09/01/20 07:21 BP 155/86 H 09/01/20 07:21 Pulse Ox 95 09/01/20 07:21 Testing Laboratory Results 09/01/20 05:39 09/01/20 05:39 PT 11.0 Seconds (9.0-12.0) 08/31/20 12:30 INR 1.0 (0.9-1.1) 08/31/20 12:30 APTT 23.1 Seconds (21.0-31.0) 08/31/20 12:30 Blood Type O Positive 08/31/20 12:30 Antibody Screen NEGATIVE 08/31/20 12:30 Electrocardiogram Date: 08/31/20 Findings: + NSR @ (33)
[2020-09-01] MEDS: PANTOprazole 40 MG in DEXTROSE 5% 100 ML IV SCH ×2 (10:46→15:39)
[2020-09-01] MEDS ORDERED: LORazepam 0.25 MG/0.5 ML VIAL IV ONE (15:17)
[2020-09-01] MEDS ORDERED: ONDANSETRON INJ 2 MG/ML 2 ML VIAL IV PRN (16:58)
[2020-09-01] MEDS ORDERED: ePHEDrine sulfate 50 MG/ML AMP IV PRN (16:58)
[2020-09-01] MEDS ORDERED: HYDROmorphone INJ 1 MG/ML SYRINGE IV PRN (16:58)
[2020-09-01] MEDS ORDERED: ATROPINE SULFATE 0.1 MG/ML 10ML SYR IV PRN (16:58)
[2020-09-01] MEDS ORDERED: fentaNYL citrate 100 MCG/2 ML VIAL IV PRN (16:58)
--- NOTE | 2020-09-01 17:17 | Operative Report ---
Post Operative Report Pre & Post Diagnosis Operation Date: 09/01/20 12:00 Pre-Op Diagnosis: Melena I identified the patient and participated in the time-out.: Yes Procedure Operation Date: 09/01/20 12:00 Actual Procedures p Esophagogastroduodenoscopy(Not Applicable) - Ollie Burgess MD Surgeon Ollie Burgess MD Supervisor Rolling Room None Estimated Blood Loss 0 Findings See Below (Gastric erosions) Specimens None Description of Procedure EGD I attest to the content of the Intraoperative Record and any orders documented therein. Any exceptions are noted below.
--- NOTE | 2020-09-01 17:25 | GI REPORT ---
Patient Name: Philippe Gonzales Procedure Date: 09/01/2020 4:26 PM Date of : 1945 Admit Type: Inpatient Age: 75 Gender: Male Attending MD: Ollie Burgess MD Procedure: Upper GI endoscopy Providers: Ollie Burgess MD Referring MD: MIGEL STANLEY Indications: Melena Medicines: Propofol per Anesthesia Complications: No immediate complications. Estimated Blood Loss: Estimated blood loss: none. Procedure: Pre-Anesthesia Assessment: - Prior to the procedure, a History and Physical was performed, and patient medications, allergies and sensitivities were reviewed. The patient's tolerance of previous anesthesia was reviewed. - The risks and benefits of the procedure and the sedation options and risks were discussed with the patient. All questions were answered and informed consent was obtained. - Patient identification and proposed procedure were verified prior to the procedure by the physician and the nurse. The procedure was verified in the procedure room. - Pre-procedure physical examination revealed no contraindications to sedation. After obtaining informed consent, the endoscope was passed under direct vision. Throughout the procedure, the patient's blood pressure, pulse, and oxygen saturations were monitored continuously. The Endoscope was introduced through the mouth, and advanced to the second part of duodenum. The upper GI endoscopy was accomplished without difficulty. The patient tolerated the procedure well. Findings: The examined esophagus was normal. A small hiatal hernia was present. A few localized erosions with no stigmata of recent bleeding were found in the gastric antrum. The duodenal bulb and second portion of the duodenum were normal. Impression: - Normal esophagus. - Small hiatal hernia. - Erosive gastropathy with no stigmata of recent bleeding. - Normal duodenal bulb and second portion of the duodenum. - No specimens collected. Recommendation: - Return patient to hospital [facility]ess for ongoing care. - Advance diet as tolerated. - No aspirin, ibuprofen, naproxen, or other non-steroidal anti-inflammatory drugs. - Use a proton pump inhibitor PO daily for 2 months. - Perform a colonoscopy electively as OP. - Recall Gi if needed. Ollie Burgess MD 09/01/2020 5:25:04 PM This report has been signed electronically. Note Initiated On: 09/01/2020 4:26 PM Number of Addenda: 0 I attest to the content of the Intraoperative Record and orders documented therein, exceptions below {[id number]}
--- NOTE | 2020-09-01 18:04 | Anesthesiology Progress Note ---
Date of Service September 01, 2020 Anesthesia Post Procedure Vital Signs Vital Signs: Temp Pulse Pulse Pulse Resp BP Pulse Ox 09/01/20 17:45 36.7 C 59 L 22 144/82 H 97 09/01/20 17:35 59 L 18 131/82 98 09/01/20 17:25 36.7 C 64 18 156/92 H 97 09/01/20 16:45 36.5 C 68 16 172/112 H 99 09/01/20 16:00 70 09/01/20 15:24 36.9 C 70 18 186/110 H 98 09/01/20 11:43 63 09/01/20 11:10 36.3 C L 63 19 171/101 H 98 09/01/20 07:21 36.9 C 60 19 155/86 H 95 09/01/20 04:18 36.4 C L 70 18 127/64 99 09/01/20 00:08 36.5 C 64 18 128/71 95 08/31/20 23:20 63 08/31/20 22:11 71 08/31/20 19:39 37.0 C 64 16 158/92 H 95 Transfer of Care Handoff Completed per policy Notes Mental Status: alert / awake / arousable and participated in evaluation Patient Amnestic to Procedure: Yes Nausea / Vomiting: adequately controlled Pain: adequately controlled Airway Patency, RR, SpO2: stable & adequate BP & HR: stable & adequate Hydration State: stable & adequate Anesthetic Complications: no major complications apparent and Pt Satisfied with anesthetic care
--- NOTE | 2020-09-01 18:19 | Hospitalist Progress Note ---
Date of Service September 01, 2020 Assessment & Plan (1) Melena: This is a 75-year-old male with PMH of hypertension, peripheral neuropathy dyslipidemia, anxiety, alcohol use disorder and other medical problems as a below who presents with episodes of melena Possible related to NSAID/alcohol in the setting of aspirin Heme positive rectal Hgb on admission 13.9 (baseline hemoglobin in the 15) Hgb today 11.5 Gastro on board S/P EGD done today showed normal esophagus and normal duodenum. Few localized erosions with no stigmata of recent bleeding were found in the gastric antrum. Will avoid aspirin, NSAID and alcohol Will change IV PPI to PO, then will continue PPI p.o. daily for 2 months. Continue monitor CBC Diet advanced as tolerated (2) Hyponatremia: Sodium of 129 on admission Possible related to alcohol abuse/dehydration Na today 137 Continue gentle fluid resuscitation. (3) Alcohol use disorder: Endorses drinking 4-6 beers daily. Denies any history of alcohol withdrawal Continue Benzo prn Will monitor closely for signs of alcohol withdrawal Counseling on alcohol cessation Will add thiamine and folic acid (4) Hypertension: BP elevated Possible related to anxiety in the hospital setting Continue lisinopril, bisoprolol Continue monitor BP (5) Dyslipidemia: Continue statin (6) Anxiety: Continue alprazolam as needed DVT Ppx: SCDs Code status: FULL PCP: Miller Dispo: Will discharge once medically stable Admission and Anticipated Discharge Date Admission Date: August 31, 2020 Subjective Pt was seen and examined Lying in bed with no distress Pt said that he feels ok He said that he had an episode of dark stool today He said that he is very anxious now Denies any chest pain, palpitation, dizziness and SOB Physical Exam Physical Exam: General- No acute distress Head- atraumatic Eyes- PERRL, EOMI, ENT- oropharynx clear Neck- supple, no JVD Lungs- clear to auscultation Heart- regular rhythm; no murmur Abdomen- normal bowel sounds, soft, nontender Extremities- no calf tenderness Neuro- alert, oriented x 3; PERRL, EOMI; no facial palsy; no dysarthria Skin- warm & dry Results & Data Results & Data ([facility]) Vital Signs (Past 12 Hours) Vital Signs Temp Pulse Pulse Pulse Resp BP Pulse Ox 09/01/20 18:06 36.7 C 59 L 18 143/83 H 97 09/01/20 17:45 36.7 C 59 L 22 144/82 H 97 09/01/20 17:35 59 L 18 131/82 98 09/01/20 17:25 36.7 C 64 18 156/92 H 97 09/01/20 16:45 36.5 C 68 16 172/112 H 99 09/01/20 16:00 70 09/01/20 15:24 36.9 C 70 18 186/110 H 98 09/01/20 11:43 63 09/01/20 11:10 36.3 C L 63 19 171/101 H 98 09/01/20 07:21 36.9 C 60 19 155/86 H 95
[2020-09-02 06:07] LABS: Hematocrit (blood only) 36.4 % (42-52); Hemoglobin 12.2 g/dL (14.0-18.0); Mean Corpuscular Hemoglobin 33.2 pg (25-34); Mean Corpuscular Hgb Conc 33.5 g/dL (32-36); Mean Corpuscular Volume 98.9 fL (80-100); Mean Platelet Volume 9.6 fL (7.4-10.4); Platelet Count 163 K/uL (130-400); RDW Coefficient of Variation 12.7 % (11.5-14.5); RDW Standard Deviation 46.1 fL (36.4-46.3); Red Blood Count 3.68 M/uL (4.7-6.1); White Blood Count 4.79 K/uL (4.8-10.8)
[2020-09-02] MEDS: ATORVASTATIN 10 MG TAB PO SCH (08:38)
[2020-09-02] MEDS: OMEGA-3 (PURIFIED FISH OIL) 1 GM CAP PO SCH (08:38)
[2020-09-02] MEDS: lisinopriL 40 MG TAB PO SCH (08:39)
[2020-09-02] MEDS: BISOPROLOL FUMARATE 5 MG TAB PO SCH (08:39)
[2020-09-02] MEDS: allopurinoL 300 MG TAB PO SCH (08:39)
[2020-09-02] MEDS: CHOLECALCIFEROL 1,000 UNITS 25 MCG TAB PO SCH (08:39)
[2020-09-02] MEDS ORDERED: THIAMINE HCL 100 MG TAB PO SCH (09:00)
[2020-09-02] MEDS ORDERED: FOLIC ACID 1 MG TAB PO SCH (09:00)
[2020-09-02] MEDS ORDERED: PANTOprazole 40 MG TAB PO SCH (09:00)
[2020-09-02] MEDS ORDERED: hydrALAZINE HCL 20 MG/ML VIAL IV PRN (10:15)
[2020-09-02] MEDS: ALPRAZolam 0.5 MG TABLET PO PRN (10:47)
--- NOTE | 2020-09-02 15:07 | Hospitalist Progress Note ---
Date of Service September 02, 2020 Assessment & Plan (1) Melena: This is a 75-year-old male with PMH of hypertension, peripheral neuropathy dyslipidemia, anxiety, alcohol use disorder and other medical problems as a below who presents with episodes of melena Possible related to NSAID/alcohol in the setting of aspirin Heme positive rectal Hgb on admission 13.9 (baseline hemoglobin in the 15) Hgb increased to 12.2 today Gastro on board S/P EGD done today showed normal esophagus and normal duodenum. Few localized erosions with no stigmata of recent bleeding were found in the gastric antrum. Pt was advised to continue avoid aspirin, NSAID and alcohol IV PPI was transition to PO, then will continue PPI p.o. daily for 2 months. Continue monitor CBC Diet advanced as tolerated (2) Hyponatremia: Sodium of 129 on admission Possible related to alcohol abuse/dehydration received gentle hydration Na 137 stable (3) Alcohol use disorder: Endorses drinking 4-6 beers daily. Pt said that his last alcohol drank was 7 days ago Denies any history of alcohol withdrawal Continue Benzo prn No signs of alcohol withdrawal Counseling on alcohol cessation On thiamine and folic acid (4) Hypertension: BP improves Possible related to anxiety in the hospital setting Continue lisinopril, bisoprolol Continue monitor BP (5) Dyslipidemia: Continue statin (6) Anxiety: Continue alprazolam as needed DVT Ppx: SCDs Code status: FULL PCP: Miller Dispo: Will discharge home today Admission and Anticipated Discharge Date Admission Date: August 31, 2020 Subjective Pt was seen and examined Lying in bed with no distress Pt said that he feels fine He said that he did not have any bowel movement today Pt said that he only drinks alcohol when he is with friends He said that the last time he had alcohol was last Friday Denies any chest pain, palpitation, dizziness and SOB Physical Exam Physical Exam: General- No acute distress Head- atraumatic Eyes- PERRL, EOMI, ENT- oropharynx clear Neck- supple, no JVD Lungs- clear to auscultation Heart- regular rhythm; no murmur Abdomen- normal bowel sounds, soft, nontender Extremities- no calf tenderness Neuro- alert, oriented x 3; PERRL, EOMI; no facial palsy; no dysarthria Skin- warm & dry Results & Data Results & Data ([facility]) Vital Signs (Past 12 Hours) Vital Signs Temp Pulse Pulse Pulse Resp BP Pulse Ox 09/02/20 11:32 36.9 C 79 18 131/79 96 09/02/20 08:59 60 09/02/20 08:35 189/117 H 09/02/20 07:51 36.4 C L 70 18 187/102 H 98 09/02/20 03:49 36.4 C L 56 L 17 143/85 H 98
--- NOTE | 2020-09-05 11:00 | Discharge Summary ---
Date of Service September 02, 2020 Admission HPI Per Admitting Provider This is a 35-year-old male with PMH of hypertension, peripheral neuropathy dyslipidemia, anxiety, alcohol use disorder and other medical problems as a below who presents with 2 episodes of melena. Patient was recently placed on Bactrim for suspected foot infection by shanker out but it was discontinued yesterday when he was evaluated in the office. Had one episode of black, liquid sticky stool yesterday but attributed that to antibiotic. Had another episode this morning with associated lightheadedness and weakness that was more concerning to him and decided to come to ED for further evaluation. Denies any nausea, vomiting or abdominal pain. Did take 4 Motrin x 2 days for suspected fever in setting of suspected foot infection earlier this week. Also endorses drinking 6 beers every night. Denies any history of GI bleeds or smoking. Takes baby aspirin because he was placed on it by former PCP. History of colonoscopy in 2018 with presence of diverticulosis but denies any history of EGD. Denies any fever, chills, lightheadedness, visual changes, chest pain, palpitation, shortness of breath, dysuria or constipation. Admission Exam Per Admitting Provider General Appearance: WD/WN, vitals as above, NAD, sitting up in bed, pleasant, conversing easily Head: normocephalic, atraumatic Eyes: normal inspection, PERRL, conjunctivae normal, anicteric sclerae ENT: external ear and nose normal, oropharynx normal Neck: normal visual inspection, trachea midline, no thyromegaly Respiratory: normal respiratory effort, lungs clear to auscultation, no wheeze, rales, rhonchi. No accessory muscle use Cardiovascular: regular rate, rhythm, no murmur, normal peripheral pulses, no BLE edema. Vessels: no JVD Chest: normal inspection of chest Abdomen/GI: normal bowel sounds, soft, nontender, no hepatosplenomegaly Extremities/Musculoskeletal: no cyanosis or clubbing, extremities motor strength 5/5 Neurologic: PERRL, EOMI, accommodation nl, no face palsy, no dysarthria, CN's II-XI intact bilaterally and moves all extremities Psychiatric: A+Ox3, euthymic affect Skin: no rashes, normal color, warm/dry Principal Diagnosis Melena (dark stools) Hyponatremia: Alcohol use Hypertension: Dyslipidemia: Discharge Exam General- No acute distress Head- atraumatic Eyes- PERRL, EOMI, ENT- oropharynx clear Neck- supple, no JVD Lungs- clear to auscultation Heart- regular rhythm; no murmur Abdomen- normal bowel sounds, soft, nontender Extremities- no calf tenderness Neuro- alert, oriented x 3; PERRL, EOMI; no facial palsy; no dysarthria Skin- warm & dry Discharge Data Allergies Allergy/AdvReac Type Severity Reaction Status Date / Time amoxicillin [From Augmentin] AdvReac Nausea Unverified 08/31/20 14:21 clavulanic acid AdvReac Nausea Unverified 08/31/20 14:21 [From Augmentin] Consultations 08/31/20 16:50 Consult Gastroenterology Routine Procedures Performed Operation Date: 09/01/20 12:00 Actual Procedures p Esophagogastroduodenoscopy(Not Applicable) - Ollie Burgess MD Hospital Course (1) Melena: This is a 75-year-old male with PMH of hypertension, peripheral neuropathy dyslipidemia, anxiety, alcohol use disorder and other medical problems as a below who presents with episodes of melena Possible related to NSAID/alcohol in the setting of aspirin Heme positive rectal Hgb on admission 13.9 (baseline hemoglobin in the 15) Hgb increased to 12.2 today Gastro on board S/P EGD done today showed normal esophagus and normal duodenum. Few localized erosions with no stigmata of recent bleeding were found in the gastric antrum. Pt was advised to continue avoid aspirin, NSAID and alcohol IV PPI was transition to PO, then will continue PPI p.o. daily for 2 months. Continue monitor CBC Diet advanced as tolerated (2) Hyponatremia: Sodium of 129 on admission Possible related to alcohol abuse/dehydration received gentle hydration Na 137 stable (3) Alcohol use disorder: Endorses drinking 4-6 beers daily. Pt said that his last alcohol drank was 7 days ago Denies any history of alcohol withdrawal Continue Benzo prn No signs of alcohol withdrawal Counseling on alcohol cessation On thiamine and folic acid (4) Hypertension: BP improves Possible related to anxiety in the hospital setting Continue lisinopril, bisoprolol Continue monitor BP (5) Dyslipidemia: Continue statin (6) Anxiety: Continue alprazolam as needed DVT Ppx: SCDs Code status: FULL PCP: Miller Dispo: Will discharge home today Total Time Total Time Spent Total Time Spent (In Minutes): 35 minutes Total Time Includes: Examination of the Patient, Discharge Planning, Medication Reconciliation, Communication With Other Providers and Other Discharge Plan Discharge Items Patient Disposition: Home - Self-Care Reason For Visit: MELENA Discharge Diagnosis: Melena (dark stools) Hyponatremia: Alcohol use Hypertension: Dyslipidemia: Condition on Discharge: Good Activity: Resume your previous activity Non-emergency contact: Primary Care Provider Call non-emergency contact if: you have any medication questions Follow-up/Referrals: Louie Bhatt DO [Primary Care Provider] - Diet: Heart Healthy Addtl Attending Provider Instructions: Follow up with your primary care provider Dr. Bhatt on 09/06 @ 9:45 AM Continue pantorazole daily for 2 months Continue to hold aspirin for now and avoid any other NSAIDs such as (Motrin, Aleve, Advil, Naproxen, Ibuprofen, ...) Follow up with gastroenterology for possible outpatient elective colonoscopy Counseling on alcohol cessation Pending Studies at Discharge: No Stand-Alone Forms: My [facility], Smoking Cessation Medications and DC Order Prescriptions: New pantoprazole 40 mg Tablet,Delayed Release (Dr/Ec) 40 mg PO QAM 30 Days Qty: 30 RF: 0 Continued atorvastatin 10 mg tablet 10 mg PO DAILY RF: 0 alendronate 70 mg tablet 70 mg PO WK RF: 0 sulfamethoxazole-trimethoprim [Bactrim DS] 800-160 mg tablet 1 tab PO UD RF: 0 bisoprolol fumarate 10 mg tablet 10 mg PO DAILY RF: 0 allopurinol 300 mg tablet 300 mg PO DAILY RF: 0 lisinopril 40 mg tablet 40 mg PO DAILY RF: 0 alprazolam 0.5 mg tablet 0.5 mg PO BID PRN (Reason: Anxiety) RF: 0 cholecalciferol (vitamin D3) 25 mcg (1,000 unit) Capsule 25 mcg PO DAILY RF: 0 [place] 3-6-9 1,200 mg Capsule 1 cap PO DAILY RF: 0 Discontinued aspirin 81 mg Tablet 81 mg PO DAILY RF: 0 Discharge Orders: Discharge Order (Routine); Ordered 09/02/20 Ordered By: Jabari Corral Admission Data Admit Date/Time: 08/31/20 15:41 Attending Provider: Jabari Corral Admit Provider: Floresita Solorio Primary Care Provider: Louie Bhatt Other Providers: Floresita Solorio ; Ollie Burgess Other Interventions: Discharge Summary Assessment (RN) Last Done: 09/02/20 15:39
== END 2020-09-02 16:00 | disposition home or self-care (01) | DRG 378 ==
LOC: ED 11:20 → SUATTDRO 15:41 → 2N 15:41

== ENCOUNTER 2021-04-25 15:56 | Inpatient (IN) ==
[2021-04-25] MEDS ORDERED: VANCOMYCIN CONSULT ACTIVE PRN ×2 (17:49→22:40)
[2021-04-25] MEDS ORDERED: VANCOMYCIN HCL 1,250 MG in SODIUM CHLORIDE 0.9% 500 ML IV ONE (17:49)
[2021-04-25 18:05] LABS: Basophils # (auto) 0.02 K/uL (0-0.2); Basophils % (auto) 0.2 %; Eosinophils # (auto) 0.05 K/uL (0-0.5); Eosinophils % (auto) 0.5 %; Hematocrit (blood only) 40.8 % (42-52); Hemoglobin 14.1 g/dL (14.0-18.0); Immature Granulocytes # (auto) 0.11 K/uL (0.00-0.02); Immature Granulocytes % (auto) 1.1 %; Lymphocytes # (auto) 1.31 K/uL (1.2-3.4); Lymphocytes % (auto) 12.7 %; Mean Corpuscular Hemoglobin 32.6 pg (25-34); Mean Corpuscular Hgb Conc 34.6 g/dL (32-36); Mean Corpuscular Volume 94.2 fL (80-100); Monocytes # (auto) 1.64 K/uL (0.11-0.59); Monocytes % (auto) 15.9 %; Neutrophils # (auto) 7.17 K/uL (1.4-6.5); Neutrophils % (auto) 69.6 %; Platelet Count 264 K/uL (130-400); RDW Standard Deviation 47.9 fL (36.4-46.3); Red Blood Count 4.33 M/uL (4.7-6.1)
[2021-04-25 18:21] LABS: Calcium 9.1 mg/dl (8.5-10.1); Creatinine Clr Calc Pharmacy 63.4 ml/min; Est GFR (African American) 92.1 ml/min; Est GFR (Non-African American) 79.5 ml/min; Potassium 3.9 mmol/L (3.5-5.1)
--- NOTE | 2021-04-25 19:23 | History & Physical Report ---
Date of Service April 25, 2021 Assessment & Plan (1) Osteomyelitis of right foot: Right 1st metatarsal. Possible septic arthritis 1st & 2nd MTP joints Pt is 75 y/o M with PMH HTN, dyslipidemia, peripheral neuropathy, gout, anxiety presented to ER for abnormal MRI right foot. Patient with history of chronic ulcer right plantar foot. Follows with podiatry-Dr. Dsouza. 03/22/2021 had sesamoidectomy right foot. Postop noted edema, erythema, drainage. Treated with Bactrim, then Cipro, Clindamycin. Wound culture from 04/13/2021 + Pseudomonas. 04/25/21 Outpatient MRI right foot with and without contrast: "consistent with osteomyelitis of first metatarsal, hallux proximal phalanx and second metatarsal head with apparent septic arthritis of first and second MTP joints. Dorsal dislocation of hallux MTP joint". In ER pt afebrile, vitals stable. No leukocytosis -In ER given vancomycin -Blood cultures pending (pt on antibiotics) -Cefepime and vancomycin -Ortho consult (2) HTN (hypertension): -Continue amlodipine, bisoprolol, lisinopril (3) Dyslipidemia: -Continue atorvastatin (4) Gout: -Continue allopurinol (5) Peripheral neuropathy: H/O bilateral lower extremity peripheral neuropathy DVT Prophylaxis -SCDs Full Code as per discussion with pt Follows with Dr Bhatt for routine care Pt was seen and care coordinated with Dr Curtis. See addendum History of Present Illness Chief Complaint: Right foot infection Primary Care Provider: Louie Bhatt, Pt is 75 y/o M with PMH HTN, dyslipidemia, peripheral neuropathy, gout, anxiety presented to ER for abnormal MRI right foot. Patient with history of chronic ulcer right plantar foot. Has been following with podiatry-Dr. Dsouza. 03/22/2021 had sesamoidectomy right foot. Postop was in a walking boot. Postop 03/30/2021 he was noted to have erythema and edema base of 1-3 toes and was started on Bactrim. Follow-up 04/13/2021 had dehiscence of incision and noted drainage. Was started on Cipro and clindamycin. Wound culture from 04/13/2021 + Pseudomonas. Follow-up 04/25/2021 noted increased edema and erythema. Total noted edema extending to foot and ankle. He had outpatient MRI right foot with and without contrast with findings "consistent with osteomyelitis of first metatarsal, hallux proximal phalanx and second metatarsal head with apparent septic arthritis of first and second MTP joints. Dorsal dislocation of hallux MTP joint". Patient was referred to ER for further evaluation and treatment. Patient denies fever, chills, nausea, vomiting. He does report had loose stools after taking antibiotics which he feels has improved. Denies further discharge from wound. Denies CHAUDHARY, dizziness, syncope, vision changes, neck pain, CP, SOB, orthopnea, palpitations, cough, sore throat, choking, otalgia, rhinorrhea, abdominal pain, paresthesias, weakness, extremity weakness, extremity edema, other rashes, urinary symptoms. Allergies Allergy/AdvReac Type Severity Reaction Status Date / Time amoxicillin [From Augmentin] AdvReac Nausea Unverified 04/25/21 18:01 clavulanic acid AdvReac Nausea Unverified 04/25/21 18:01 [From Augmentin] Home Medications Medication Instructions Recorded Confirmed Type alendronate 70 mg PO WK 08/31/20 04/25/21 History allopurinol 300 mg PO DAILY 08/31/20 04/25/21 History alprazolam 0.5 mg PO BID PRN 08/31/20 04/25/21 History atorvastatin 10 mg PO DAILY 08/31/20 04/25/21 History bisoprolol fumarate 10 mg PO DAILY 08/31/20 04/25/21 History lisinopril 40 mg PO DAILY 08/31/20 04/25/21 History amlodipine 5 mg PO QAM 04/25/21 04/25/21 History ciprofloxacin HCl 500 mg PO BID 04/25/21 04/25/21 History fiber 1 cap PO QAM 04/25/21 04/25/21 History Past Med/Surg History Medical History (Updated 04/25/21 @ 21:17 by Madeline Rdz PA-C) Anemia Anxiety Dyslipidemia Gout HTN (hypertension) Peripheral neuropathy Surgical History (Updated 04/25/21 @ 21:12 by Madeline Rdz PA-C) H/O foot surgery 03/22/21. right foot sesmoidectomy 1st toe, Dr Dsouza H/O hemorrhoidectomy History of tonsillectomy S/P rotator cuff repair Family History (Updated 04/25/21 @ 21:13 by Madeline Rdz PA-C) Mother Breast cancer Sister Breast cancer Other Alzheimer disease Social History Smoking Status: Former smoker Hx Alcohol Use: Yes Alcohol type: beer Alcohol Intake Frequency: 4 or More x per/Week Alcohol Intake Frequency Comment: 6-7 beers every night Hx Substance Use: No Preferred Language: Ugandan Communication Ability: Effective Visual Impairment: No Limitations Show Card Letterer Required: No Beliefs That Will Affect Care: None Current Living Situation: Spouse Feels Safe at Home: Yes Assistive Devices: Cane Review of Systems Review of Systems: All systems reviewed & are unremarkable except as noted in HPI & below Physical Exam Physical Exam: General: no distress, WDWN Head: normocephalic, atraumatic Eyes: conjunctiva non-injected, anicteric ENT: normal inspection external ears, nose, mucous membranes moist Neck: supple, trachea midline Lungs: clear, no respiratory distress, no wheezing/rhonchi/rales CV: RRR, no murmur Abd: normal BS, soft, non-tender Ext: no cyanosis, no calf tenderness; RLE +edema ankle distal to toes, right great toe with edema, erythema, plantar foot with small opening without acute drainage; non-tender to palpation (h/o neuropathy), distal pulses palpable Neuro: A&O x 3, no focal deficits noted, normal affect Skin: warm, dry Results & Data Results & Data ([facility]) Vital Signs (Past 12 Hours) Vital Signs Temp Pulse Pulse Resp BP BP Pulse Ox 04/25/21 18:48 68 18 121/72 99 04/25/21 18:04 81 18 138/78 98 04/25/21 15:58 36.7 C 79 18 156/89 H 96 Laboratory Results Short CBC 04/25/21 Range/Units 17:50 WBC 10.30 (4.8-10.8) K/uL Hgb 14.1 (14.0-18.0) g/dL Hct 40.8 L (42-52) % Plt Count 264 (130-400) K/uL BMP 04/25/21 17:50 Sodium 130 L Potassium 3.9 Chloride 97 L Carbon Dioxide 27 BUN 7 Creatinine 0.93 Glucose 144 H Calcium 9.1 Code Status & VTE Plan VTE Prophylaxis Plan VTE Prophylaxis will be ordered: Yes Supervising Physician Co-Signing Physician Notes I saw this patient with the physician teacher's assistant, I participated in the history, physical, review of systems, and physical exam. I reviewed the medications with the patient and the physician teacher's assistant and helped reconcile the medications. I helped take a detailed family and social history as well. I formulated the assessment and plan personally with the physician teacher's assistant and went over it with the patient. ROS-No Headache, No Visual Changes, No Nausea, No Vomiting, No Fever, No Chills, No Neck Pain or Stiffness, No Chest Pain, No Palpitations, No SOB, No ESTEVEZ, No Cough, No Sputum, No Wheezing, No Abdominal Pain, No Diarrhea, No Hematemesis, No Hemoptysis, No Unexpected Weight Loss, No Flank pain, No Melena, No Hematochezia, No Frequency, No Urgency, No Burning, No Hematuria, No Rashes, No Diaphoresis. Appetite is Normal Physical Exam Gen-AAO x 3, NAD, Afebrile Head-NCAT, EOMI, PERRLA, Anicteric Sclera, No Posterior Pharyngeal Erythema Neck-Supple, No JVD, No Thyromegaly, No Masses, No LAD, No Bruits Lungs-Clear to Auscultation Bilaterally, No Rales, No Rhonchi, No Wheezing, No Crepitus Chest-No S4, +S1, +S2, No S3, No Murmurs, No Rubs, No Gallops, No Ectopy Abdomen-Soft, Bowel Sounds Present, Non Tender, Non Distended, No Hepatomegaly, No Splenomegaly, No Palpable Masses, No Rebound, No Rigidity, No Guarding Musculoskeletal-Full Range of Motion Bilaterally, No CVAT Extremities-No Cyanosis, No Clubbing, Red R great toe Nuero-Cranial Nerves II-XII grossly intact, Motor WNL, DTRs WNL, Strength WNL, Non Focal Psych-Normal Mood
[2021-04-25] MEDS ORDERED: CEFEPIME 2,000 MG/20 ML VIAL IV STA (20:09)
--- NOTE | 2021-04-25 20:09 | Emergency Department Note ---
History of Present Illness General Chief complaint: Infection Stated complaint: Ref by ; Bone infection Time Seen by Provider: 04/25/21 17:23 History of Present Illness Provider complaint: Right foot infection Location: lower extremity and right Maximum Pain Intensity: 2 Associated symptoms: no chest pain, no fever/chills, no nausea/vomiting, no shortness of breath and no weakness 75-year-old male presents emergency department for right foot lesion. Patient had a excisional fibular sesamoid of the right foot and excision of the ulcer done on March 22, 2021. 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 Meet Chavis who was concerned for an infection so she ordered an MRI and then called him to come to the emergency department. No fevers. He does report drainage coming from the right foot. Home Medications Medication Instructions Recorded Confirmed Type alendronate 70 mg PO WK 08/31/20 04/25/21 History allopurinol 300 mg PO DAILY 08/31/20 04/25/21 History alprazolam 0.5 mg PO BID PRN 08/31/20 04/25/21 History atorvastatin 10 mg PO DAILY 08/31/20 04/25/21 History bisoprolol fumarate 10 mg PO DAILY 08/31/20 04/25/21 History lisinopril 40 mg PO DAILY 08/31/20 04/25/21 History amlodipine 5 mg PO QAM 04/25/21 04/25/21 History ciprofloxacin HCl 500 mg PO BID 04/25/21 04/25/21 History fiber 1 cap PO QAM 04/25/21 04/25/21 History Allergies Allergy/AdvReac Type Severity Reaction Status Date / Time amoxicillin [From Augmentin] AdvReac Nausea Unverified 04/25/21 18:01 clavulanic acid AdvReac Nausea Unverified 04/25/21 18:01 [From Augmentin] Past Med/Surg History Medical History Anemia Peripheral neuropathy Surgical History H/O foot surgery History of tonsillectomy S/P rotator cuff repair Family History Other Alzheimer disease Family history non-contributory Social History (Reviewed 04/25/21 @ 20:07 by Raj Jaramillo Smoking Status: Former smoker Hx Alcohol Use: Yes Alcohol type: beer Alcohol Intake Frequency: 4 or More x per/Week Alcohol Intake Frequency Comment: 6-7 beers every night Hx Substance Use: No Preferred Language: Sudanese Communication Ability: Effective Visual Impairment: No Limitations Pot Filler Required: No Beliefs That Will Affect Care: None Current Living Situation: Spouse Feels Safe at Home: Yes Assistive Devices: Cane Review of Systems A total of 6 systems reviewed and were otherwise negative Physical Exam Vital Signs Vital Signs - 24 hr 04/25/21 15:58 04/25/21 18:04 04/25/21 18:48 Temperature 36.7 C Temperature Source Temporal Artery Scan Pulse Rate 79 Pulse Rate [Right Finger] 81 68 Pulse Rhythm [Right Finger] Regular Regular Pulse Strength [Right Finger] Normal Normal Respiratory Rate 18 18 18 Respiratory Effort / Characteristics Non-Labored Non-Labored Respiratory Depth Normal Normal Respiratory Pattern Regular Regular Blood Pressure 156/89 H Blood Pressure [Right Arm] 138/78 121/72 Blood Pressure Mean 111 Blood Pressure Mean [Right Arm] 98 88 Blood Pressure Position [Right Arm] Sitting Lying Pulse Oximetry 96 98 99 Oxygen Delivery Method Room Air Room Air Room Air Sepsis Recent Fever Within 48 Hours No Sepsis New/Unexplained Change in Mental Status No Sepsis Action Taken by Nursing No Action Required Physical Exam GENERAL: He is oriented to person, place, and time. He appears well-developed and well-nourished. He does not appear distressed. HENT: Exam performed. - Head: Normocephalic and atraumatic. - Right Ear: External ear normal. No mastoid tenderness. - Left Ear: External ear normal. No mastoid tenderness. - Mouth/Throat: The oropharynx is clear and moist. No trismus in the jaw. No dental abscesses or uvula swelling. No oropharyngeal exudate or tonsillar abscesses. EYES: Conjunctivae and EOM are normal. Pupils are equal, round, and reactive to light. Right eye exhibits no discharge. Left eye exhibits no discharge. No scler al icterus. NECK: Normal range of motion. Neck supple. No JVD present. No spinous process tenderness present. No carotid bruit present. No rigidity. No tracheal deviation and normal range of motion present. No Brudzinski's sign and no Kernig's sign noted. CV: Normal rate, regular rhythm, normal heart sounds and intact distal pulses. There is no peripheral edema. Palpable radial pulses bue. PULM/CHEST: Effort normal and breath sounds normal. No respiratory distress. No stridor. He has no wheezes. He has no rales. - Chest Wall: He exhibits no tenderness. ABD: The abdomen is soft. Bowel sounds are normal. He has no distension. No mass is present. There is no tenderness. There is no rebound, no guarding, no Whitley's sign and no tenderness at McBurney's point. Rovsig negative. MUSC/SKEL: Dressing over the right foot. LYMPH: No cervical adenopathy. NEURO: He is alert and oriented to person, place, and time. He has normal strength. No cranial nerve deficit or sensory deficit. Coordination and gait normal. GCS eye subscore is 4. GCS verbal subscore is 5. GCS motor subscore is 6. Cerebellar tests wnl. SKIN: Skin is warm and dry. He is not diaphoretic. PSYCH: He has a normal mood and affect. Behavior is normal. Judgment and thought content normal. Course Course 1722: The patient was evaluated in room A2. A complete history and physical exam was performed Cardiac monitoring: An order was placed for continuous cardiac monitoring. The monitor shows a rate of 70 with sinus rhythm [facility] Faxed over the results of the patient's MRI which showed osteomyelitis. Lab work was also done today which showed a white blood cell count of 10.1. Culture done on April 13 showed Pseudomonas. Patient be treated with vancomycin and cefepime. We will plan on admitting the patient to the [facility] hospitalist team. Administered Medications Vancomycin HCl 1,250 mg/ (Sodium Chloride) 525 mls @ 200 mls/hr IV NOW ONE Stop: 04/25/21 20:26 Last Admin: 04/25/21 18:49 Dose: 200 mls/hr Documented by: [id number] Medical Decision Making Laboratory Data Result diagrams: 04/25/21 17:50 04/25/21 17:50 Lab Results 04/25/21 04/25/21 04/25/21 Range/Units 17:50 17:50 18:03 WBC 10.30 (4.8-10.8) K/uL RBC 4.33 L (4.7-6.1) M/uL Hgb 14.1 (14.0-18.0) g/dL Hct 40.8 L (42-52) % MCV 94.2 (80-100) fL MCH 32.6 (25-34) pg MCHC 34.6 (32-36) g/dL RDW Std Deviation 47.9 H (36.4-46.3) fL RDW Coeff of Francisco Javier 14.0 (11.5-14.5) % Plt Count 264 (130-400) K/uL MPV 9.0 (7.4-10.4) fL Immature Gran % (Auto) 1.1 % Neut % (Auto) 69.6 % Lymph % (Auto) 12.7 % Ogle % (Auto) 15.9 % Eos % (Auto) 0.5 % Baso % (Auto) 0.2 % Neut # (Auto) 7.17 H (1.4-6.5) K/uL Lymph # (Auto) 1.31 (1.2-3.4) K/uL Ogle # (Auto) 1.64 H (0.11-0.59) K/uL Eos # (Auto) 0.05 (0-0.5) K/uL Baso # (Auto) 0.02 (0-0.2) K/uL Immature Gran # (Auto) 0.11 H (0.00-0.02) K/uL Sodium 130 L (136-145) mmol/L Potassium 3.9 (3.5-5.1) mmol/L Chloride 97 L (98-107) mmol/L Carbon Dioxide 27 (21-32) mmol/L Anion Gap 6.0 (3-11) BUN 7 (7-18) mg/dl Creatinine 0.93 (0.6-1.4) mg/dl Est Cr Clr Drug Dosing 63.4 ml/min Est GFR ( Amer) 92.1 ml/min Est GFR (Non-Af Amer) 79.5 ml/min BUN/Creatinine Ratio 7.0 L (10-20) Glucose 144 H (70-99) mg/dl Calcium 9.1 (8.5-10.1) mg/dl COVID-19 Eval Order Covid19 at [facility] SARS-CoV-2 (PCR) (Negative) 04/25/21 Range/Units 18:03 WBC (4.8-10.8) K/uL RBC (4.7-6.1) M/uL Hgb (14.0-18.0) g/dL Hct (42-52) % MCV (80-100) fL MCH (25-34) pg MCHC (32-36) g/dL RDW Std Deviation (36.4-46.3) fL RDW Coeff of Francisco Javier (11.5-14.5) % Plt Count (130-400) K/uL MPV (7.4-10.4) fL Immature Gran % (Auto) % Neut % (Auto) % Lymph % (Auto) % Ogle % (Auto) % Eos % (Auto) % Baso % (Auto) % Neut # (Auto) (1.4-6.5) K/uL Lymph # (Auto) (1.2-3.4) K/uL Ogle # (Auto) (0.11-0.59) K/uL Eos # (Auto) (0-0.5) K/uL Baso # (Auto) (0-0.2) K/uL Immature Gran # (Auto) (0.00-0.02) K/uL Sodium (136-145) mmol/L Potassium (3.5-5.1) mmol/L Chloride (98-107) mmol/L Carbon Dioxide (21-32) mmol/L Anion Gap (3-11) BUN (7-18) mg/dl Creatinine (0.6-1.4) mg/dl Est Cr Clr Drug Dosing ml/min Est GFR ( Amer) ml/min Est GFR (Non-Af Amer) ml/min BUN/Creatinine Ratio (10-20) Glucose (70-99) mg/dl Calcium (8.5-10.1) mg/dl COVID-19 Eval Order SARS-CoV-2 (PCR) NEGATIVE (Negative) MDM Narrative The patient was evaluated in room A2. A complete history and physical exam was performed Cardiac monitoring: An order was placed for continuous cardiac monitoring. The monitor shows a rate of 70 with sinus rhythm [facility] Faxed over the results of the patient's MRI which showed osteomyelitis. Lab work was also done today which showed a white blood cell count of 10.1. Culture done on April 13 showed Pseudomonas. Patient be treated with vancomycin and cefepime. We will plan on admitting the patient to the [facility] hospitalist team. Impression & Plan Osteomyelitis Discharge Plan Visit Data Chief Complaint: Infection Stated Complaint: Ref by dr; Bone infection ED Provider: Raj Yan Discharge Problem: Osteomyelitis Patient Disposition: Admitted As Inpatient Forms Stand Alone Forms: My [facility] Prescriptions Prescriptions: No Action atorvastatin 10 mg tablet 10 mg PO DAILY RF: 0 alendronate 70 mg tablet 70 mg PO WK RF: 0 bisoprolol fumarate 10 mg tablet 10 mg PO DAILY RF: 0 allopurinol 300 mg tablet 300 mg PO DAILY RF: 0 lisinopril 40 mg tablet 40 mg PO DAILY RF: 0 alprazolam 0.5 mg tablet 0.5 mg PO BID PRN (Reason: Anxiety) RF: 0 ciprofloxacin HCl 500 mg tablet 500 mg PO BID RF: 0 amlodipine 5 mg tablet 5 mg PO QAM RF: 0 fiber Capsule 1 cap PO QAM RF: 0 Referrals Referrals: Louie Bhatt DO [Primary Care Provider] - Discharge Problem: Osteomyelitis Qualifiers: Osteomyelitis type: unspecified type Osteomyelitis location: foot Laterality: unspecified laterality Qualified Code(s): M86.9 - Osteomyelitis, unspecified
[2021-04-25] MEDS ORDERED: ACETAMINOPHEN 325 MG TAB PO PRN (22:03)
[2021-04-25] MEDS ORDERED: ONDANSETRON INJ 2 MG/ML 2 ML VIAL IV PRN (22:03)
[2021-04-25] MEDS ORDERED: POLYETHYLENE (MIRALAX) 17 GM PACK PO PRN (22:03)
[2021-04-26] MEDS ORDERED: MELATONIN 3 MG TAB PO PRN (01:59)
[2021-04-26] MEDS: ALPRAZolam 0.5 MG TABLET PO PRN ×2 (02:22→22:06)
[2021-04-26] MEDS: CEFEPIME 2,000 MG in SYRINGE 0 ML IV SCH ×3 (05:45→22:07)
[2021-04-26] MEDS: VANCOMYCIN HCL 1,250 MG in SODIUM CHLORIDE 0.9% 250 ML IV SCH ×2 (05:45→17:57)
[2021-04-26 06:53] LABS: Hematocrit (blood only) 39.4 % (42-52); Hemoglobin 13.4 g/dL (14.0-18.0); Mean Corpuscular Hemoglobin 32.2 pg (25-34); Mean Corpuscular Volume 94.7 fL (80-100); Mean Platelet Volume 8.9 fL (7.4-10.4); Platelet Count 245 K/uL (130-400); RDW Coefficient of Variation 14.2 % (11.5-14.5); RDW Standard Deviation 48.5 fL (36.4-46.3); Red Blood Count 4.16 M/uL (4.7-6.1); White Blood Count 7.52 K/uL (4.8-10.8)
[2021-04-26 07:30] LABS: Albumin Level 2.9 gm/dl (3.4-5.0); BUN Creatinine Ratio 8.1 (10-20); Calcium 8.3 mg/dl (8.5-10.1); Creatinine Clr Calc Pharmacy 91.4 ml/min; Est GFR (African American) 105.6 ml/min; Est GFR (Non-African American) 91.1 ml/min; Potassium 4.4 mmol/L (3.5-5.1)
[2021-04-26 07:33] LABS: Albumin Globulin Ratio 0.7 (0.9-2); Bilirubin,Total 0.9 mg/dl (0.2-1); Globulin 3.9 gm/dl (2.5-4.0); Total Protein 6.8 gm/dl (6.4-8.2)
--- NOTE | 2021-04-26 07:49 | Pharmacy Report ---
Pharmacy Abx Initial Consult - Date of Service April 26, 2021 - Pharmacy Dosing Scope Date of Consult: 04/25 Consultation requested by: Dr. Rdz Pharmacy is consulted to initiate vancomycin IV dosing therapy, order appropriate labs and adjust drug dose/frequency. - Subjective The patient is a 75 year old M admitted on 04/25/21 19:06. - Objective Height: 5 ft 10 in Weight: 84.7 kg Vital Signs (Past 12hrs): Vital Signs Temp Pulse Pulse Resp BP Pulse Ox 04/26/21 07:10 36.4 C L 57 L 16 146/78 H 93 04/26/21 03:14 36.6 C 58 L 18 130/74 97 04/26/21 00:29 69 04/25/21 22:09 36.7 C 84 18 176/101 H 95 04/25/21 20:00 72 17 123/69 96 Lab Results (24hrs): Laboratory Tests (24 Hours) 04/26/21 04/26/21 04/25/21 06:29 06:29 17:50 WBC 7.52 Neut # (Auto) Creatinine 0.71 0.93 Est Cr Clr Drug Dosing 91.4 63.4 04/25/21 17:50 WBC 10.30 Neut # (Auto) 7.17 H Creatinine Est Cr Clr Drug Dosing Micro Results: 04/25/21 19:11 Aerobic Blood Culture - Pending Blood Anaerobic Blood Culture - Pending 04/25/21 19:11 Aerobic Blood Culture - Pending Blood Anaerobic Blood Culture - Pending - Risk Factors for Resistance * Antimicrobial use within the last 90 days [Bactrim, ciprofloxacin, clindamycin] - Assessment & Plan Assessment 75 year old M with a past medical history of peripheral neuropathy and chronic right plantar foot ulcer (followed by podiatry) receiving IV vancomycin and cefepime for R foot osteomyelitis. He is s/p R foot sesamoidectomy 03/22 which was complicated by infection (wound culture (+) pseudomonas per report). Renal function is stable. Blood cultures pending. Plan Vancomycin IV * Loading dose: s/p vancomycin 1250mg IV X 1 last evening in the ED (dosed based upon body weight entered as 66kg) * Maintenance dose: 1250mg (~15mg/kg) q12h * Goal trough level for osteomyelitis: 15 to 20 mcg/mL * Trough level ordered for 6/4 AM Pharmacy will continue to follow and will adjust dose/frequency as necessary. Thank you.
[2021-04-26] MEDS: BISOPROLOL FUMARATE 5 MG TAB PO SCH (08:07)
[2021-04-26] MEDS: allopurinoL 300 MG TAB PO SCH (08:08)
[2021-04-26] MEDS: lisinopril 40 MG TAB PO SCH (08:08)
[2021-04-26] MEDS: ATORVASTATIN 10 MG TAB PO SCH (08:08)
[2021-04-26] MEDS: SACCHAROMYCES BOULARDII 250 MG CAP PO SCH (08:08)
[2021-04-26] MEDS: amLODIPine BESYLATE 5 MG TAB PO SCH (08:09)
--- NOTE | 2021-04-26 12:55 | Orthopedic Consultation ---
Date of Consultation April 26, 2021 Assessment & Plan (1) Osteomyelitis of right foot: He again has had a postoperative infection on his right foot for at least the past month after a sesamoidectomy by Dr. Gladys Dsouza at [facility] on 03/22/21. He reports 2 years of wound drainage from the same area prior to surgery, and he therefore may have had chronic osteomyelitis. All of his previous care was done through the [facility] system. I do not have any of his previous records, operative reports, or imaging available for review. I do not see any indication for urgent surgical intervention based on his examination today. He was reportedly directed to our hospital by Dr. Dsouza. I would highly recommend transfer this patient to the [facility] for further care of this postoperative complication. Present on Admission?: Yes History of Present Illness Reason for Consultation: Right foot postoperative infection Attending Physician: Jabari Corral MD History of Present Illness Mr. Gonzales is a 75-year-old male who is a patient of Dr. Gladys Dsouza, a faa certified powerplant mechanic at [facility]. The patient reports that he had chronic right foot pain and drainage from a plantar wound for about 2 years, and eventually underwent a great toe MTP joint sesamoidectomy on March [address] Dsouza. He reports that no MRI was done prior to the surgery, but he had worsening pain, swelling, erythema, and drainage from the wound immediately after surgery. He reports that his swelling never went down after his surgery. He was treated with multiple rounds of oral antibiotics by Dr. Dsouza. Dr. Dsouza eventually ordered an MRI, presumably through the [facility], that reportedly indicated osteomyelitis. Dr. Dsouza then directed him to our emergency room for admission and potential further treatment. Allergies Allergy/AdvReac Type Severity Reaction Status Date / Time amoxicillin [From Augmentin] AdvReac Nausea Unverified 04/25/21 18:01 clavulanic acid AdvReac Nausea Unverified 04/25/21 18:01 [From Augmentin] Home Medications Medication Instructions Recorded Confirmed Type alendronate 70 mg PO WK 08/31/20 04/25/21 History allopurinol 300 mg PO DAILY 08/31/20 04/25/21 History alprazolam 0.5 mg PO BID PRN 08/31/20 04/25/21 History atorvastatin 10 mg PO DAILY 08/31/20 04/25/21 History bisoprolol fumarate 10 mg PO DAILY 08/31/20 04/25/21 History lisinopril 40 mg PO DAILY 08/31/20 04/25/21 History amlodipine 5 mg PO QAM 04/25/21 04/25/21 History ciprofloxacin HCl 500 mg PO BID 04/25/21 04/25/21 History fiber 1 cap PO QAM 04/25/21 04/25/21 History Patient History Medical History (Updated 04/26/21 @ 12:58 by Mynor Sheikh M.D.) Anemia Anxiety Dyslipidemia Gout HTN (hypertension) Peripheral neuropathy Surgical History (Updated 04/25/21 @ 21:12 by Madeline Rdz PA-C) H/O foot surgery 03/22/21. right foot sesmoidectomy 1st toe, Dr Dsouza H/O hemorrhoidectomy History of tonsillectomy S/P rotator cuff repair Family History (Updated 04/25/21 @ 21:13 by Madeline Rdz PA-C) Mother Breast cancer Sister Breast cancer Other Alzheimer disease Social History Smoking Status: Former smoker Second Hand Exposure: Yes; Do You Dip or Chew Tobacco: No; Tobacco Cessation Education Requested by Patient: No Hx Alcohol Use: Yes Alcohol type: beer Alcohol Intake Frequency: 4 or More x per/Week Alcohol Intake Frequency Comment: 6-7 beers every night Hx Substance Use: No Preferred Language: Mohawk Communication Ability: Effective Visual Impairment: No Limitations Glove Cutter Required: No Beliefs That Will Affect Care: None marital status: Current Living Situation: Spouse Other Information That Helps Us Care for You: No Feels Safe at Home: Yes Safety Concerns: Feels Safe At This Time Assistive Devices: Cane Physical Exam Physical Exam: Examination of the plantar aspect of the right foot reveals a small wound under the first MTP joint. There is very mild wound dehiscence. No significant tenderness to palpation, although he reports chronic neuropathy. No active or expressible drainage. Minimal surrounding erythema. No significant induration, fluctuance, or palpable fluid collection. He has a smaller more superficial appearing wound on the lateral aspect of the foot under the fifth MTP joint. No active or expressible drainage from this wound either. No erythema streaking up the leg. Results & Data ([facility]) Vital Signs (Past 12 Hours) Vital Signs Temp Pulse Pulse Resp BP Pulse Ox 04/26/21 11:05 36.7 C 56 L 18 130/86 94 04/26/21 08:55 61 04/26/21 07:10 36.4 C L 57 L 16 146/78 H 93 04/26/21 03:14 36.6 C 58 L 18 130/74 97 Laboratory Results WBC 7.52 No ESR or CRP available Diagnostic Findings He reportedly had outside x-rays and MRI done yesterday, but none of these images are available for review in our system. (1) Osteomyelitis of right foot Osteomyelitis type: chronic, with draining sinus Qualified Code(s): M86.471 - Chronic osteomyelitis with draining sinus, right ankle and foot
--- NOTE | 2021-04-26 19:59 | Hospitalist Progress Note ---
Date of Service April 26, 2021 Assessment & Plan (1) Osteomyelitis of right foot: Pt is 75 y/o M with PMH HTN, dyslipidemia, peripheral neuropathy, gout, anxiety presented to ER for abnormal MRI right foot. Patient with history of chronic ulcer right plantar foot. Follows with podiatry-Dr. Dsouza. 03/22/2021 had sesamoidectomy right foot. Postop noted edema, erythema, drainage. Treated with Bactrim, then Cipro, Clindamycin. Wound culture from 04/13/2021 + Pseudomonas. 04/25/21 Outpatient MRI right foot with and without contrast: "consistent with osteomyelitis of first metatarsal, hallux proximal phalanx and second metatarsal head with apparent septic arthritis of first and second MTP joints. Dorsal dislocation of hallux MTP joint". Afebrile and no leukocytosis on admission Outpatient Wound culture from 04/13/2021 grew Pseudomonas. Currently on cefepime and Vancomycin Blood cx pending Ortho on board case discussed with Ortho that cannot give a detail assessment because they don't have the actual MRI Dr. Sheikh said that if pt would require any surgical procedure that it will be best to get it at a [facility] facility since pt had his previous surgery with ortho; also said that it is the podiatry call to make the decision if pt needs any urgent surgical procedure since she reviewed the MRI of the foot. Spoke to Podiatry Dr. Dsouza that said that no need to transfer to [facility] for urgent surgery, but recommended ID consult to help with abx coverage and duration Dr. Dsouza will arrange for outpatient surgery once pt is discharged Continue IV abx with cefepime and vanco Continue wound care ID consult (2) HTN (hypertension): Continue amlodipine, bisoprolol, lisinopril (3) Dyslipidemia: Continue atorvastatin (4) Gout: Continue allopurinol (5) Peripheral neuropathy: H/O bilateral lower extremity peripheral neuropathy DVT Prophylaxis SCDs for now, but will start on heparin during the hospital course Full Code Admission and Anticipated Discharge Date Admission Date: April 25, 2021 Subjective Pt was seen and examined for follow up of right foot infection Lying in bed with no acute distress Pt said that he was sent to the ER to get eval for abnormal MRI foot that showed osteomyelitis He said that he is not have any pain because he has neuropathy in his feet He would like to try conservative management for the wound if possible, but if he needs surgery he will do it Denies any chest pain, palpitation, dizziness and SOB Review of Systems Review of Systems: All systems reviewed & are unremarkable except as noted in Subjective Physical Exam Physical Exam: General- No acute distress Head- atraumatic Eyes- PERRL, EOMI, ENT- oropharynx clear Neck- supple, no JVD Lungs- clear to auscultation Heart- regular rhythm; no murmur Abdomen- normal bowel sounds, soft, nontender Extremities- no cyanosis, no calf tenderness; RLE +edema ankle distal to toes, right great toe with edema, erythema, plantar foot with small opening without acute drainage; non-tender to palpation (h/o neuropathy), distal pulses palpable Neuro- alert, oriented x 3; PERRL, EOMI; no facial palsy; no dysarthria Skin- warm & dry Results & Data Results & Data ([facility]) Vital Signs (Past 12 Hours) Vital Signs Temp Pulse Pulse Resp BP Pulse Ox 04/26/21 19:27 36.7 C 68 18 164/88 H 94 04/26/21 15:04 36.6 C 58 L 18 129/81 95 04/26/21 11:05 36.7 C 56 L 18 130/86 94 04/26/21 08:55 61 (1) Osteomyelitis of right foot Osteomyelitis type: chronic, with draining sinus Qualified Code(s): M86.471 - Chronic osteomyelitis with draining sinus, right ankle and foot
[2021-04-27] MEDS ORDERED: VANCOMYCIN TROUGH ONE (05:30)
[2021-04-27] MEDS: CEFEPIME 2,000 MG in SYRINGE 0 ML IV SCH ×2 (05:55→13:41)
[2021-04-27] MEDS: VANCOMYCIN HCL 1,250 MG in SODIUM CHLORIDE 0.9% 250 ML IV SCH (06:02)
[2021-04-27] MEDS ORDERED: CEFEPIME CONSULT ACTIVE PRN (07:34)
[2021-04-27] MEDS: allopurinoL 300 MG TAB PO SCH (07:48)
[2021-04-27] MEDS: lisinopril 40 MG TAB PO SCH (07:48)
[2021-04-27] MEDS: BISOPROLOL FUMARATE 5 MG TAB PO SCH (07:48)
[2021-04-27] MEDS: SACCHAROMYCES BOULARDII 250 MG CAP PO SCH (07:48)
[2021-04-27] MEDS: ATORVASTATIN 10 MG TAB PO SCH (07:48)
[2021-04-27] MEDS: amLODIPine BESYLATE 5 MG TAB PO SCH (07:48)
[2021-04-27 07:50] LABS: Creatinine Clr Calc Pharmacy 83.2 ml/min; Est GFR (African American) 101.6 ml/min; Est GFR (Non-African American) 87.7 ml/min
--- NOTE | 2021-04-27 08:34 | Pharmacy Report ---
Pharmacy Abx Dose Short Note - Date of Service April 27, 2021 - Assessment & Plan Assessment 75 year old M with a past medical history of peripheral neuropathy and chronic right plantar foot ulcer (followed by podiatry) receiving IV vancomycin and cefepime for R foot osteomyelitis. He is s/p R foot sesamoidectomy 03/22 which was complicated by infection (wound culture (+) pseudomonas per report). Renal function is stable. Blood cultures NGTD. Orthopedics & infectious diseases consulted. Trough was drawn appropriately this AM and was prior to the 3rd dose of the maintenance regimen. Day # 3 of antimicrobial therapy. Plan Vancomycin * Trough level of 14.3mcg/mL is therapeutic but slightly below target goal. * Given that additional accumulation is likely, and pt appears clinically stable: Continue dose of 1250 mg IV every 12 hours * Goal trough level for osteomyelitis : 15 to 20 mcg/mL * Will order a trough in 48-72 hours or sooner if clinically indicated. Pharmacy will continue to follow and will adjust dose/frequency as necessary. Thank you.
[2021-04-27] MEDS: HEPARIN SOD 5,000 UNIT/0.5 ML VIAL SQ SCH ×2 (10:07→10:38)
--- NOTE | 2021-04-27 16:04 | Electrocardiogram Report ---
Test Reason : Blood Pressure : / mmHG Vent. Rate : 059 BPM Atrial Rate : 059 BPM P-R Int : 206 ms QRS Dur : 092 ms QT Int : 434 ms P-R-T Axes : 055 057 046 degrees QTc Int : 429 ms Poor data quality, interpretation may be adversely affected Sinus bradycardia Otherwise normal ECG When compared with ECG of 31-AUG-2020 12:51, No significant change was found Confirmed by Shay Wallace ([id number]) on 04/27/2021 4:03:50 PM Referred By: Gladys Dsouza Confirmed By:Shay Wallace
--- NOTE | 2021-04-27 17:39 | Hospitalist Progress Note ---
Date of Service April 27, 2021 Assessment & Plan (1) Osteomyelitis of right foot: Pt is 75 y/o M with PMH HTN, dyslipidemia, peripheral neuropathy, gout, anxiety presented to ER for abnormal MRI right foot. Patient with history of chronic ulcer right plantar foot. Follows with podiatry-Dr. Dsouza. 03/22/2021 had sesamoidectomy right foot. Postop noted edema, erythema, drainage. Treated with Bactrim, then Cipro, Clindamycin. Wound culture from 04/13/2021 + Pseudomonas. 04/25/21 Outpatient MRI right foot with and without contrast: "consistent with osteomyelitis of first metatarsal, hallux proximal phalanx and second metatarsal head with apparent septic arthritis of first and second MTP joints. Dorsal dislocation of hallux MTP joint". Afebrile and no leukocytosis on admission Outpatient Wound culture from 04/13/2021 grew Pseudomonas. Currently on cefepime and Vancomycin Blood cx no growth Ortho on board case discussed with Ortho that cannot give a detail assessment because they don't have the actual MRI Dr. Sheikh said that if pt would require any surgical procedure that it will be best to get it at a [facility] facility since pt had his previous surgery with ortho; also said that it is the podiatry call to make the decision if pt needs any urgent surgical procedure since she reviewed the MRI of the foot. Spoke to Podiatry Dr. Dsouza that said that no need to transfer to [facility] facility for urgent surgery, but recommended ID consult to help with abx coverage and duration Dr. Dsouza will arrange for outpatient surgery once pt is discharged [facility] ID was consulted that recommended to discontinue the Vanco and recommended IV Cefepime or high dose PO cipro for 6 weeks Unfortunately his insurance does not cover for home infusion and pt will have to go to SNF to complete the 6 weeks course of IV Cefepime he is not interested to go to SNF for 6 weeks for the IV abx infusion and prefers to go home on high dose PO cipro EKG done to check QTC, his QTC stable Podiatry Dr. Dsouza notified with the plan and pt has a follow appt with podiatry next Friday Continue wound care Will check CBC and CMP weekly while on abx (2) HTN (hypertension): Continue amlodipine, bisoprolol, lisinopril (3) Dyslipidemia: Continue atorvastatin (4) Gout: Continue allopurinol (5) Peripheral neuropathy: H/O bilateral lower extremity peripheral neuropathy DVT Prophylaxis SCDs and heparin subq Full Code Disposition Discharge home today Admission and Anticipated Discharge Date Admission Date: April 25, 2021 Subjective Pt was seen and examined for follow up of right foot infection Lying in bed with no acute distress Pt said that he feels ok, but did not sleep much being in the hospital He had the tele consult with ID that recommended IV cefepime or PO Cipro Pt would prefer the IV cefepime but his insurance does not [place] home infusion and pt not interested to go to SNF for 6 weeks to get it He prefers to return home with oral antibiotic with Cipro Denies any chest pain, palpitation, dizziness and SOB Review of Systems Review of Systems: All systems reviewed & are unremarkable except as noted in Subjective Physical Exam Physical Exam: General- No acute distress Head- atraumatic Eyes- PERRL, EOMI, ENT- oropharynx clear Neck- supple, no JVD Lungs- clear to auscultation Heart- regular rhythm; no murmur Abdomen- normal bowel sounds, soft, nontender Extremities- no cyanosis, no calf tenderness; RLE +edema ankle distal to toes, right great toe with edema, erythema, plantar foot with small opening without acute drainage; non-tender to palpation (h/o neuropathy), distal pulses palpable Neuro- alert, oriented x 3; PERRL, EOMI; no facial palsy; no dysarthria Skin- warm & dry Results & Data Results & Data ([facility]) Vital Signs (Past 12 Hours) Vital Signs Temp Pulse Pulse Pulse Resp BP BP 04/27/21 15:12 36.8 C 62 18 133/75 04/27/21 13:40 144/84 H 04/27/21 11:51 36.5 C 56 L 16 138/92 04/27/21 07:54 36.7 C 59 L 16 148/78 H 04/27/21 07:27 55 L Pulse Ox 04/27/21 15:12 94 04/27/21 13:40 04/27/21 11:51 04/27/21 07:54 95 04/27/21 07:27 (1) Osteomyelitis of right foot Osteomyelitis type: chronic, with draining sinus Qualified Code(s): M86.471 - Chronic osteomyelitis with draining sinus, right ankle and foot
--- NOTE | 2021-04-30 09:53 | Discharge Summary ---
Date of Service April 27, 2021 Admission HPI Per Admitting Provider Pt is 75 y/o M with PMH HTN, dyslipidemia, peripheral neuropathy, gout, anxiety presented to ER for abnormal MRI right foot. Patient with history of chronic ulcer right plantar foot. Has been following with podiatry-Dr. Dsouza. 03/22/2021 had sesamoidectomy right foot. Postop was in a walking boot. Postop 03/30/2021 he was noted to have erythema and edema base of 1-3 toes and was started on Bactrim. Follow-up 04/13/2021 had dehiscence of incision and noted drainage. Was started on Cipro and clindamycin. Wound culture from 04/13/2021 + Pseudomonas. Follow-up 04/25/2021 noted increased edema and erythema. Total not ed edema extending to foot and ankle. He had outpatient MRI right foot with and without contrast with findings "consistent with osteomyelitis of first metatarsal, hallux proximal phalanx and second metatarsal head with apparent septic arthritis of first and second MTP joints. Dorsal dislocation of hallux MTP joint". Patient was referred to ER for further evaluation and treatment. Patient denies fever, chills, nausea, vomiting. He does report had loose stools after taking antibiotics which he feels has improved. Denies further discharge from wound. Denies CHAUDHARY, dizziness, syncope, vision changes, neck pain, CP, SOB, orthopnea, palpitations, cough, sore throat, choking, otalgia, rhinorrhea, abdominal pain, paresthesias, weakness, extremity weakness, extremity edema, other rashes, urinary symptoms. Admission Exam Per Admitting Provider General: no distress, WDWN Head: normocephalic, atraumatic Eyes: conjunctiva non-injected, anicteric ENT: normal inspection external ears, nose, mucous membranes moist Neck: supple, trachea midline Lungs: clear, no respiratory distress, no wheezing/rhonchi/rales CV: RRR, no murmur Abd: normal BS, soft, non-tender Ext: no cyanosis, no calf tenderness; RLE +edema ankle distal to toes, right great toe with edema, erythema, plantar foot with small opening without acute drainage; non-tender to palpation (h/o neuropathy), distal pulses palpable Neuro: A&O x 3, no focal deficits noted, normal affect Skin: warm, dry Principal Diagnosis Osteomyelitis of right foot: Discharge Exam General- No acute distress Head- atraumatic Eyes- PERRL, EOMI, ENT- oropharynx clear Neck- supple, no JVD Lungs- clear to auscultation Heart- regular rhythm; no murmur Abdomen- normal bowel sounds, soft, nontender Extremities- no cyanosis, no calf tenderness; RLE +edema ankle distal to toes, right great toe with edema, erythema, plantar foot with small opening without acute drainage; non-tender to palpation (h/o neuropathy), distal pulses palpable Neuro- alert, oriented x 3; PERRL, EOMI; no facial palsy; no dysarthria Skin- warm & dry Discharge Data Allergies Allergy/AdvReac Type Severity Reaction Status Date / Time amoxicillin [From Augmentin] AdvReac Nausea Unverified 04/25/21 18:01 clavulanic acid AdvReac Nausea Unverified 04/25/21 18:01 [From Augmentin] Consultations 04/25/21 17:50 ED Decision to Admit Stat 04/26/21 08:00 Consult Orthopedic Surgery Routine 04/26/21 17:54 Consult Infectious Diseases Routine Hospital Course (1) Osteomyelitis of right foot: Pt is 75 y/o M with PMH HTN, dyslipidemia, peripheral neuropathy, gout, anxiety presented to ER for abnormal MRI right foot. Patient with history of chronic ulcer right plantar foot. Follows with podiatry-Dr. Dsouza. 03/22/2021 had sesamoidectomy right foot. Postop noted edema, erythema, drainage. Treated with Bactrim, then Cipro, Clindamycin. Wound culture from 04/13/2021 + Pseudomonas. 04/25/21 Outpatient MRI right foot with and without contrast: "consistent with osteomyelitis of first metatarsal, hallux proximal phalanx and second metatarsal head with apparent septic arthritis of first and second MTP joints. Dorsal dislocation of hallux MTP joint". Afebrile and no leukocytosis on admission Outpatient Wound culture from 04/13/2021 grew Pseudomonas. Currently on cefepime and Vancomycin Blood cx no growth Ortho on board case discussed with Ortho that cannot give a detail assessment because they don't have the actual MRI Dr. Sheikh said that if pt would require any surgical procedure that it will be best to get it at a [facility] facility since pt had his previous surgery with ortho; also said that it is the podiatry call to make the decision if pt needs any urgent surgical procedure since she reviewed the MRI of the foot. Spoke to Podiatry Dr. Dsouza that said that no need to transfer to [facility] for urgent surgery, but recommended ID consult to help with abx coverage and duration Dr. Dsouza will arrange for outpatient surgery once pt is discharged [facility] ID was consulted that recommended to discontinue the Vanco and recommended IV Cefepime or high dose PO cipro for 6 weeks Unfortunately his insurance does not cover for home infusion and pt will have to go to SNF to complete the 6 weeks course of IV Cefepime he is not interested to go to SNF for 6 weeks for the IV abx infusion and prefers to go home on high dose PO cipro EKG done to check QTC, his QTC stable Podiatry Dr. Dsouza notified with the plan and pt has a follow appt with podiatry next Friday Continue wound care Will check CBC and CMP weekly while on abx (2) HTN (hypertension): Continue amlodipine, bisoprolol, lisinopril (3) Dyslipidemia: Continue atorvastatin (4) Gout: Continue allopurinol (5) Peripheral neuropathy: H/O bilateral lower extremity peripheral neuropathy DVT Prophylaxis SCDs and heparin subq Full Code Disposition Discharge home today Total Time Total Time Spent Total Time Spent (In Minutes): 35 minutes Total Time Includes: Examination of the Patient, Discharge Planning, Medication Reconciliation, Communication With Other Providers and Other Discharge Plan Discharge Items Patient Disposition: Home - Self-Care Reason For Visit: OSTEOMYELITIS R GREAT TOE Discharge Diagnosis: Osteomyelitis of right foot: Activity: Resume your previous activity Non-emergency contact: Primary Care Provider Call non-emergency contact if: you have any medication questions and your temperature is above 101 Follow-up/Referrals: Gladys Dsouza DPM [Outside Practitioners] - (Date & Time 05/02/2021 10:20 AM Provider Gladys Dsouza DPM Department Podiatry [facility] ) Louie Bhatt DO [Primary Care Provider] - (Date & Time 05/02/2021 12:20 PM Provider ZUHAIR Wood Department Family Practice [facility] ) Diet: Heart Healthy Addtl Attending Provider Instructions: Follow up with your primary care provider ZUHAIR Wood on 05/02/2021 at 12:20 PM at Family Practice [facility] Follow up with Podiatry Dr. Dsouza on 05/02/2021 at 10:20 AM Podiatry [facility] Complete the course of the antibiotic with Ciprofloxain 750mg for 6 weeks Check CMP and CBC weekly while on antibiotic ( your provider will order the lab) Continue wound care Fall precaution Pending Studies at Discharge: No Stand-Alone Forms: My [facility], Smoking Cessation Medications and DC Order Prescriptions: New Saccharomyces boulardii [Florastor] 250 mg Capsule 250 mg PO DAILY Qty: 30 RF: 0 ciprofloxacin HCl [Cipro] 500 mg tablet 750 mg PO BID 42 Days Qty: 126 RF: 0 Continued atorvastatin 10 mg tablet 10 mg PO DAILY RF: 0 alendronate 70 mg tablet 70 mg PO WK RF: 0 bisoprolol fumarate 10 mg tablet 10 mg PO DAILY RF: 0 allopurinol 300 mg tablet 300 mg PO DAILY RF: 0 lisinopril 40 mg tablet 40 mg PO DAILY RF: 0 alprazolam 0.5 mg tablet 0.5 mg PO BID PRN (Reason: Anxiety) RF: 0 amlodipine 5 mg tablet 5 mg PO QAM RF: 0 fiber Capsule 1 cap PO QAM RF: 0 Discontinued ciprofloxacin HCl 500 mg tablet 500 mg PO BID RF: 0 Discharge Orders: Discharge Order (Routine); Ordered 04/27/21 Ordered By: Jabari Corral Admission Data Admit Date/Time: 04/25/21 19:06 Attending Provider: Jabari Corral Admit Provider: Jerry Curtis Primary Care Provider: Louie Bhatt Other Providers: Jerry Curtis ; Isidro Faria ; Master Ríos ; Musa Knight ; Julian Mcrae I. ; Slim Sidhu II ; Roya Mota ; Fracisco Germain Other Interventions: Discharge Summary Assessment (RN) Last Done: 04/27/21 18:10
== END 2021-04-27 18:29 | disposition home or self-care (01) | DRG 540 ==
LOC: ED 15:56 → 2N 19:06 → SUATTDRO 19:06 → 2N 20:17